=== PATIENT | female | born 1985 | race Caucasian/White ===

== ENCOUNTER 2018-08-14 13:14 | Outpatient (REF) | payer BC, SELFPAY | END 2018-08-14 13:34 | LOC: NCHCN 13:14 | PROVIDERS: PCP Family Medicine; Visit Provider Internal Medicine | DX: N39.0 Urinary tract infection, site not specified (principal) | CPT/HCPCS: 87086 ==

== ENCOUNTER 2018-10-22 09:36 | Outpatient (REF) | payer BC, SELFPAY ==
[2018-10-22 12:43] LABS: ALT 30 U/L (12-78); AST 14 U/L (15-37); Albumin 4.5 g/dL (3.4-5.0); Alkaline Phosphatase 80 U/L (46-116); Anion Gap 10.1 mmol/L (3-11); BUN 12 mg/dL (7-18); Bilirubin, Total 1.1 mg/dL (0.2-1.0); CO2 28.9 mmol/L (21.0-32.0); CREATININE 0.94 mg/dL (0.55-1.02); Calcium 9.5 mg/dL (8.5-10.1); Chloride 105 mmol/L (98-107); Cholesterol 189 mg/dL (50-200); Glucose 103 mg/dL (70-100); HDL Cholesterol 49 mg/dL (40-60); LDL CHOLESTEROL 124 mg/dL (<100); Potassium 4.1 mmol/L (3.5-5.1); Sodium 144 mmol/L (136-145); Total Protein 7.7 g/dL (6.4-8.2); Triglyceride 100 mg/dL (30-150)
== END 2018-10-22 09:56 ==
LOC: NCHCN 09:36
PROVIDERS: PCP Family Medicine; Visit Provider Family Medicine
DX: Z00.00 Encounter for general adult medical examination without abnormal findings (principal); Z83.49 Family history of other endocrine, nutritional and metabolic diseases; Z82.49 Family history of ischemic heart disease and other diseases of the circulatory system
CPT/HCPCS: 80053; 80061; 83721

== ENCOUNTER 2018-11-23 10:49 | Emergency (ER) | payer BC, SELFPAY ==
[2018-11-23] VITALS (44 sets, daily range): BP systolic 110–134; BP diastolic 48–72; PULSE 79–116; RESP 7–24; TEMP 36.7; O2SAT 96–100
--- NOTE | 2018-11-23 11:04 | W.ED.GENAD ---
Discharge Plan Disposition Patient Disposition: HOME Condition: Stable Discharge Details Chief Complaint: Chest Pain Clinical Impression: Chest pain Primary Care Provider: Loretta Oh ED Provider: Elena Lo Home Meds and New Rx's Prescriptions: Continued vitamin B complex [B Complex-Vitamin B12] tablet 1 tab PO DAILY RF: 0 mometasone [Nasonex] 17 GM spray,non-aerosol 17 gm NS BID RF: 0 escitalopram oxalate [Lexapro] 10 mg tablet 10 mg PO DAILY RF: 0 Discharge Instructions Instructions: Chest Pain (ED) Additional Instructions: Please return immediately to the emergency department if you develop any new or worsening symptoms or if you become otherwise concerned. It is extremely important that you make an appointment to be seen in follow-up for this visit as soon as possible by you primary care doctor. Referrals: Loretta Oh [Primary Care Provider] - Discharge Data Discharge Date/Time-TO BE ENTERED AT DEPARTURE: 11/23/18 16:15 Medical Decision Making Terri Mays is a 32 y/o woman with history of anxiety who presented to the emergency department with several days of sharp bilateral intermittent nonradiating chest pain, sensation of chest fullness and heart racing. On exam patient is very well and nontoxic appearing. She does appear mildly anxious. She is tachycardic, cardiopulmonary exam is otherwise benign. Patient has sensation of heart racing while on telemetry, with rhythm strip showing sinus tachycardia at 120, reports this is the same sensation of heart racing that she has been having over the past few days. Concern for ACS, PE, metabolic/lyte derangement, dehydration, anxiety, other. Exam/history is not consistent with sepsis, acute aortic pathology. Plan for EKG, chest x-ray, screening labs, flu swab, IV fluid hydration, telemetry. Given intermittent nature of pain, plan for repeat troponin and EKG. Patient describes no sensation of pain or chest fullness at this time, will hold nitroglycerin. Will monitor and reassess. She reports feeling much improved after IV fluids. Tachycardia resolved. Continues to report no pain. She reports that she feels mildly anxious but otherwise very well. Repeat troponin and EKG negative for acute ischemia. She does have slight ST depression on both EKGs, this is likely rate related as patient is currently having no chest discomfort. There are no priors for comparison. Given the very atypical nature of chest pain, no cardiac risk factors, it is unlikely that patient's chest pain is cardiac at this time. I did have a lengthy discussion with patient regarding return to emergency department precautions, and importance of outpatient follow-up as soon as possible. She verbalizes understanding of the plan and is amenable. Medical Records Medical records reviewed: Yes I reviewed the patient's medical records. Imaging Data Radiologic Study: Attestation: I personally reviewed and interpreted this imaging study as follows: Radiologist's impression: PA AND LATERAL CHEST: The cardiac and mediastinal contours have a normal appearance. The lungs are well inflated and clear. No infiltrate or effusion is seen. IMPRESSION: Negative chest xray. Lab Data Lab results reviewed: Yes I reviewed the patient's lab results. 11/23/18 11:45 Nasopharynx Influenza Types A,B Antigen - Final Laboratory Tests Range/Units 11/23/18 11/23/18 11/23/18 11:50 12:05 12:05 WBC (4.4-10.8) k/cumm 10.06 RBC (4.00-5.20) m/cumm 4.62 Hgb (12.0-15.5) g/dL 13.4 Hct (36.0-46.0) % 39.8 MCV (80-95) fL 86.1 MCH (27.0-33.0) pg 29.0 MCHC (32.0-36.0) g/dL 33.7 RDW (11.7-14.6) % 13.5 Plt Count (130-400) x1000/uL 249 MPV (8.0-11.0) fL 9.6 Immature Gran % 0.2 Neutrophils % 81.6 Lymphocytes % 13.0 Monocytes % 4.8 Eosinophils % 0.2 Basophils % 0.2 Absolute Neutrophils (1.2-6.7) k/cumm 8.21 H Absolute Lymphocytes (1.2-3.4) k/cumm 1.31 Absolute Monocytes (0.11-0.7) k/cumm 0.48 Absolute Eosinophils (0.0-0.7) k/cumm 0.02 Absolute Basophils (0.0-0.2) k/cumm 0.02 D-Dimer (<500) ng/mlFEU Sodium (136-145) mmol/L 138 Potassium (3.5-5.1) mmol/L 3.5 Chloride (98-107) mmol/L 102 Carbon Dioxide (21.0-32.0) mmol/L 24.9 Anion Gap (3-11) mmol/L 11.1 H BUN (7-18) mg/dL 15 Creatinine (0.55-1.02) mg/dL 0.84 Estimated GFR/1.73 m2 (mL/min/1.73m2) >= 60.00 Glucose (70-100) mg/dL 99 Calcium (8.5-10.1) mg/dL 9.2 Total Bilirubin (0.2-1.0) mg/dL 0.9 AST (15-37) U/L 16 ALT (12-78) U/L 24 Alkaline Phosphatase (46-116) U/L 77 Troponin I (0.00-0.06) ng/mL < 0.02 Total Protein (6.4-8.2) g/dL 7.8 Albumin (3.4-5.0) g/dL 4.2 Urine Color (Yellow) Yellow Urine Clarity Clear Urine pH (5-8) 7.0 Ur Specific [place] (1.005-1.025) 1.025 Urine Protein (Negative) mg/dL Negative Urine Ketones (Negative) mg/dL Trace H Urine Blood (Negative) Negative Urine Nitrite (Negative) Negative Urine Bilirubin (Negative) Negative Urine Urobilinogen (Up TO 0.2) EU/dL 0.2 Ur Leukocyte Esterase (Negative) Negative Urine Glucose (Negative) mg/dL Negative Range/Units 11/23/18 11/23/18 12:05 14:42 WBC (4.4-10.8) k/cumm RBC (4.00-5.20) m/cumm Hgb (12.0-15.5) g/dL Hct (36.0-46.0) % MCV (80-95) fL MCH (27.0-33.0) pg MCHC (32.0-36.0) g/dL RDW (11.7-14.6) % Plt Count (130-400) x1000/uL MPV (8.0-11.0) fL Immature Gran % Neutrophils % Lymphocytes % Monocytes % Eosinophils % Basophils % Absolute Neutrophils (1.2-6.7) k/cumm Absolute Lymphocytes (1.2-3.4) k/cumm Absolute Monocytes (0.11-0.7) k/cumm Absolute Eosinophils (0.0-0.7) k/cumm Absolute Basophils (0.0-0.2) k/cumm D-Dimer (<500) ng/mlFEU 239 Sodium (136-145) mmol/L Potassium (3.5-5.1) mmol/L Chloride (98-107) mmol/L Carbon Dioxide (21.0-32.0) mmol/L Anion Gap (3-11) mmol/L BUN (7-18) mg/dL Creatinine (0.55-1.02) mg/dL Estimated GFR/1.73 m2 (mL/min/1.73m2) Glucose (70-100) mg/dL Calcium (8.5-10.1) mg/dL Total Bilirubin (0.2-1.0) mg/dL AST (15-37) U/L ALT (12-78) U/L Alkaline Phosphatase (46-116) U/L Troponin I (0.00-0.06) ng/mL < 0.02 Total Protein (6.4-8.2) g/dL Albumin (3.4-5.0) g/dL Urine Color (Yellow) Urine Clarity Urine pH (5-8) Ur Specific [place] (1.005-1.025) Urine Protein (Negative) mg/dL Urine Ketones (Negative) mg/dL Urine Blood (Negative) Urine Nitrite (Negative) Urine Bilirubin (Negative) Urine Urobilinogen (Up TO 0.2) EU/dL Ur Leukocyte Esterase (Negative) Urine Glucose (Negative) mg/dL ECG Data Attestation: I personally reviewed and interpreted this ECG (s) as follows: Interpretation: EKG shows sinus tach at 125 with normal axis, diffuse ST depression, no STEMI, nondiagnostic EKG EKG #2 shows sinus rhythm at 97, normal axis, slight inferior lateral ST depression, no STEMI, non-diagnostic EKG HPI General Mode of arrival: ambulatory. Date/Time Provider Initiated Documentation: 11/23/18 11:04. Limitations to Documentation: no limitations. Information obtained by: patient, RN notes reviewed and old records reviewed. HPI Narrative: Terri Mays is a 32-year-old woman with history of anxiety, environmental allergies presenting to the emergency department with 4 days of chest fullness, heart racing. Patient reports that 4 days ago she noticed that she was having some pain both sides of her anterior chest, although she associated this with physical therapy that she is having for her shoulder/thoracic outlet syndrome diagnosed 1 year ago. Patient reports that pain in her anterior chest has been intermittent, but she has also had a fairly constant sensation of chest fullness. Patient reports that she is not having any chest pain currently. She also notes that she has felt her heart racing intermittently over the past 4 days. She has had a cough, no fever or shortness of breath. No nausea/vomiting/diarrhea, no rash, no similar symptoms in the past. Has been eating and drinking as usual. No recent travel. She reports recent stress and long h/o anxiety, and is also concerned that chest pain, heart racing may be secondary to anxiety; particularly as the symptoms have seemed worse in the past few days when she has been feeling anxious. Related Data Home Medications Medication Instructions Recorded Confirmed mometasone [Nasonex] 17 gm NS BID 03/12/16 11/26/18 escitalopram 10 mg tablet 10 mg PO DAILY tab 10/15/18 11/26/18 vitamin B complex tablet 1 tab PO DAILY 10/15/18 11/26/18 Allergies Allergy/AdvReac Type Severity Reaction Status Date / Time doxycycline AdvReac Intermediate Other (See Unverified 11/26/18 08:23 Comment) Review of Systems Review of Systems Constitutional: denies fevers Eyes: denies eye pain ENT: denies facial pain, dental pain, sore throat Cardiovascular: reports chest pain, heart racing, denies edema Respiratory: denies SOB, reports cough GI: denies abdominal pain, vomiting, diarrhea : denies flank pain MSK: denies back pain, neck pain, arthralgias, myalgias Skin: denies rash Neuro: denies headaches, numbness, weakness [facility] Medical History Migraine without aura and without status migrainosus, not intractable (Chronic 01/08/18) Postcoital bleeding (Acute) Anxiety Pyelonephritis Surgical History History of nasal septoplasty (Resolved) Arm surgery (~2004) Family History Sister Drug abuse Grandfather Diabetes Uncle Diabetes Social History household members: spouse, children and other details: H-Elvin, D-Kaden number of children: 1 highest education level completed: Bachelor's degree Smoking and Tabacco status: Never second hand exposure: Yes alcohol intake: never substance use type: does not use Seatbelt use: always Female Reproductive History Menstrual control method: permanent sterilization History History 2 Para Hx # Term Pregnancies 1 Multiple births Hx # Pregnancies Ectopic pregnancies AB induced Hx Number of Living Children AB spontaneous Exam Narrative Exam Narrative: Constitutional: well and [id number], pleasant, conversing normally HENT: head atraumatic, normocephalic normal inspection, mucous membranes moist Eyes: conjunctiva normal, sclera normal, pupils 3mm b/l Neck: no stridor, normal ROM, trachea midline Chest: normal inspection, mild TTP anterior chest that does not reproduce pain Resp: normal work of breathing, LCTAB Cardio: Tachycardic rate, normal rhythm, no murmur appreciated GI: abdomen soft, non-tender, non-distended Back: normal inspection, no rash Skin: warm, dry, normal color, no rash Neuro: alert, not altered, grossly non-focal, normal tone Ext: no edema, no posterior calf TTP Psych: normal mood, normal affect, normal behavior
--- NOTE | 2018-11-23 11:22 | DI.RAD_ITS ---
SYMPTOM/DIAGNOSIS: COUGH PA AND LATERAL CHEST: The cardiac and mediastinal contours have a normal appearance. The lungs are well inflated and clear. No infiltrate or effusion is seen. IMPRESSION: Negative chest xray.
[2018-11-23] MEDS: Normal Saline 1,000 ML 1000 ML IV (12:05)
[2018-11-23 12:07] LABS: Bilirubin Negative (Negative); Blood Negative (Negative); Clarity Clear; Glucose Negative (Negative); Ketones Trace mg/dL (Negative); Leukocyte Esterase Negative (Negative); Nitrite Negative (Negative); Specific Gravity 1.025 (1.005-1.025); Urobilinogen 0.2 EU/dL (Up TO 0.2)
[2018-11-23 12:21] LABS: Abs Immature Grans 0.02 k/cumm (0.0-0.09); Absolute Basophil Count 0.02 k/cumm (0.0-0.2); Absolute Eosinophil Count 0.02 k/cumm (0.0-0.7); Absolute Lymphocyte Count 1.31 k/cumm (1.2-3.4); Absolute Monocyte Count 0.48 k/cumm (0.11-0.7); Absolute Neutrophil Count 8.21 k/cumm (1.2-6.7); Basophils % 0.2; Eosinophils % 0.2; HCT 39.8 % (36.0-46.0); HGB 13.4 g/dL (12.0-15.5); Immature Grans % 0.2; Mean Corp. HGB Concentration 33.7 g/dL (32.0-36.0); Mean Corpuscular Volume 86.1 fL (80-95); Mean Platelet Volume 9.6 fL (8.0-11.0); Monocytes % 4.8; Neutrophils % 81.6; Platelet Count 249 x1000/uL (130-400); RBC 4.62 m/cumm (4.00-5.20); RBC Distribution Width 13.5 % (11.7-14.6); White Blood Cell Count 10.06 k/cumm (4.4-10.8)
[2018-11-23 12:56] LABS: D-Dimer 239 ng/mlFEU (<500)
[2018-11-23 13:00] LABS: ALT 24 U/L (12-78); AST 16 U/L (15-37); Albumin 4.2 g/dL (3.4-5.0); Alkaline Phosphatase 77 U/L (46-116); Anion Gap 11.1 mmol/L (3-11); BUN 15 mg/dL (7-18); Bilirubin, Total 0.9 mg/dL (0.2-1.0); CO2 24.9 mmol/L (21.0-32.0); CREATININE 0.84 mg/dL (0.55-1.02); Calcium 9.2 mg/dL (8.5-10.1); Chloride 102 mmol/L (98-107); Glucose 99 mg/dL (70-100); Potassium 3.5 mmol/L (3.5-5.1); Sodium 138 mmol/L (136-145); Total Protein 7.8 g/dL (6.4-8.2)
[2018-11-23 13:01] LABS: Troponin I < 0.02 ng/mL (0.00-0.06)
[2018-11-23 15:09] LABS: Troponin I < 0.02 ng/mL (0.00-0.06)
== END 2018-11-23 16:15 | disposition home or self-care (01) ==
PROVIDERS: Emergency Provider Student in an Organized Health Care Education/Training Program; PCP Family Medicine
DX: R00.0 Tachycardia, unspecified (principal)
CPT/HCPCS: 36415; 80053; 81025; 87449; 93005; 96360; 99285; 71046; 81003; 84484; 85025; 85379; 93010

== ENCOUNTER 2019-01-18 16:16 | Outpatient (REF) | payer BC, SELFPAY ==
--- NOTE | 2019-01-18 15:30 | PAPFT_PTH ---
PATIENT: Terri Mays LOC: [facility] U#:[id number] AGE/SX: 33/F ROOM: RE01/18/[address]: JEAN PIERRE Peñaloza : 1985 BED: DIS: 01/18/2019 SPEC #: [id number] RECD: 01/18/19 18:12 STATUS: LEONARDO REBrandyn #: [id number] AMY: 01/18/19 15:[address]: Aggie Beltrán DEPT: [facility] Cytology RECD BY: April Cowan ENTERED: 01/18/19 18:12 SP TYPE: PAPFT OTHR DR: Loretta Oh Tissues: 1 - CX/ENDOCX FOR PAP SMEARS Procedures: PAP THIN PREP/UVM Screening HPV DNA PROBE Comments: [id number]
== END 2019-01-18 16:36 ==
LOC: LBN 16:16
PROVIDERS: PCP Family Medicine; Visit Provider Nurse Practitioner Family
DX: Z12.4 Encounter for screening for malignant neoplasm of cervix (principal); Z11.51 Encounter for screening for human papillomavirus (HPV)
CPT/HCPCS: 88142; 87624

== ENCOUNTER 2019-03-24 10:13 | Outpatient (CLI) | payer BC, SELFPAY ==
--- NOTE | 2019-03-24 10:08 | DI.RAD_ITS ---
SYMPTOM/DIAGNOSIS: NECK PAIN, ARM AND HAND NUMBNESS CERVICAL SPINE: AP, lateral and bilateral oblique views. There are no priors for comparison. There is normal alignment. The vertebral bodies, disc spaces and posterior elements are all well maintained. The bones are normally mineralized. The soft tissues are unremarkable. No significant neural foraminal encroachment is present. IMPRESSION: Negative cervical spine.
== END 2019-03-24 10:33 ==
PROVIDERS: PCP Family Medicine; Visit Provider Student in an Organized Health Care Education/Training Program
DX: M54.12 Radiculopathy, cervical region (principal); M54.2 Cervicalgia; R20.0 Anesthesia of skin
CPT/HCPCS: 72050

== ENCOUNTER 2019-03-31 00:34 | Outpatient (CLI) | payer BC, SELFPAY ==
--- NOTE | 2019-03-31 11:28 | DI.MRI_ITS ---
SYMPTOMS/DIAGNOSIS: RIGHT UPPER EXTREMITY NUMBNESS, + SPURLING, M54.12 RADICULOPATHY, CERVICAL REGION MRI OF THE CERVICAL SPINE: Routine noncontrast examination was performed. There is normal signal in the spinal cord. No evidence of tonsillar ectopia is seen. There is normal marrow signal. No focal disc herniation, central spinal canal or neural foraminal stenosis is seen in the cervical spine. IMPRESSION: Negative MRI of the cervical spine.
== END 2019-03-31 00:54 ==
PROVIDERS: PCP Family Medicine; Visit Provider Student in an Organized Health Care Education/Training Program
DX: M54.12 Radiculopathy, cervical region (principal); R20.0 Anesthesia of skin
CPT/HCPCS: 72141

== ENCOUNTER 2019-04-26 01:18 | Outpatient (CLI) | payer BC, SELFPAY ==
--- NOTE | 2019-04-26 16:04 | DI.CT_ITS ---
SYMPTOM/DIAGNOSIS: THORACIC OUTLET SYNDROME G54.[address]: 04/26 CT examination of the chest was performed with a bolus infusion of 100 cc Omnipaque 350. Images obtained through the upper abdomen show unremarkable appearance of visualized portions of liver, spleen, pancreas, adrenals and kidneys. The lungs are clear. No pleural effusion or pleural based mass. No mediastinal or hilar adenopathy. Tracheobronchial tree appears intact. No evidence of pulmonary embolic disease. Thoracic aorta is normal in appearance. Major branch vessels show normal diameter and no evidence of dissection, occlusion or aneurysm formation. The requisition raises the possibility of thoracic outlet syndrome. This examination was obtained with the patient's arms elevated. The right subclavian artery appears intact throughout its course. The left subclavian artery is not ideally visualized in the costoclavicular space and the possibility of compression at this site is raised. The distal portions of the artery appear normal. No aneurysm formation. No gross evidence of venous compression or thrombosis in the region surveyed. No mass, lesion or adenopathy. CONCLUSION: Findings raising the possibility of left subclavian artery compression in the costoclavicular space on the left. Clinical correlation requested.
[2019-04-26] MEDS: Omnipaque 350 MG/ML 100 ML BTL IJ (16:15)
== END 2019-04-26 01:38 ==
PROVIDERS: PCP Family Medicine; Visit Provider Thoracic Surgery (Cardiothoracic Vascular Surgery)
DX: G54.0 Brachial plexus disorders (principal); I77.1 Stricture of artery
CPT/HCPCS: 71260; J3490

== ENCOUNTER 2019-05-10 00:59 | Outpatient (CLI) | payer BC, SELFPAY ==
--- NOTE | 2019-05-10 08:54 | DI.MRI_ITS ---
SYMPTOM/DIAGNOSIS: RIGHT FACE NUMBNESS, ? MS VS TGN. R20.1, ANESTHESIA OF SKIN R20.2 PARESTHESIA OF SKIN MRI BRAIN: Routine noncontrast MRI of the brain was performed including thin cuts through the brain stem. There is normal signal within the brain parenchyma. The diffusion weighted images show no evidence of restricted diffusion. Susceptibility images show no intracranial evidence of intracranial hemorrhage. The ventricles are intact. The basilar cisterns are patent. There is a normal flow void present in the [place]. The pituitary gland appears grossly unremarkable as are the regions of the internal auditory canals and cerebellar pontine angles. No intracranial mass, midline shift or mass effect is identified. The visualized paranasal sinuses are clear. The orbits and retro-orbital soft tissues are unremarkable. IMPRESSION: Negative examination.
== END 2019-05-10 01:19 ==
PROVIDERS: PCP Family Medicine; Visit Provider Psychiatry & Neurology Neurology
DX: R20.0 Anesthesia of skin (principal); R20.2 Paresthesia of skin
CPT/HCPCS: 70551

== ENCOUNTER 2019-07-07 14:57 | Outpatient (REF) | payer BC, SELFPAY | END 2019-07-07 15:17 | LOC: LBN 14:57 | PROVIDERS: PCP Family Medicine; Visit Provider Nurse Practitioner Women's Health | DX: R30.0 Dysuria (principal) | CPT/HCPCS: 87086 ==

== ENCOUNTER 2019-07-08 13:27 | Emergency (ER) | payer BC, SELFPAY ==
--- NOTE | 2019-07-08 13:41 | NUR.NOTE ---
Nursing Note: primary complaint is left sided flank pain 8/10 and 5/10 on right side. pt also states that she has had numbness on the left side of her labia and believes that these 2 things are connected for some reason numbness started 2-3 months ago and flank pain started 2 days ago. pt has been seeing OBGYN for (pt does not know name) for these problems pt called OBGYN today expressing concern for pain and OBGYN stated if you are concerned you are more than welcome to go to the ed
[2019-07-08 13:45] VITALS: BP 141/93; PULSE 88; RESP 16; TEMP 36.5; O2SAT 99
[2019-07-08 14:33] LABS: Bilirubin Negative (Negative); Blood Trace-intact (Negative); Clarity Clear (Clear); Glucose Negative (Negative); Ketones Negative (Negative); Leukocyte Esterase Negative (Negative); Nitrite Negative (Negative); Urobilinogen 0.2 EU/dL (Up TO 0.2)
[2019-07-08 14:42] LABS: Abs Immature Grans 0.02 k/cumm (0.0-0.09); Absolute Basophil Count 0.01 k/cumm (0.0-0.2); Absolute Eosinophil Count 0.02 k/cumm (0.0-0.7); Absolute Lymphocyte Count 1.13 k/cumm (1.2-3.4); Absolute Monocyte Count 0.59 k/cumm (0.11-0.7); Absolute Neutrophil Count 8.86 k/cumm (1.2-6.7); Basophils % 0.1; Eosinophils % 0.2; HCT 39.5 % (36.0-46.0); HGB 13.2 g/dL (12.0-15.5); Immature Grans % 0.2; Lymphocytes % 10.6; Mean Corp. HGB Concentration 33.4 g/dL (32.0-36.0); Mean Corpuscular Hemoglobin 28.8 pg (27.0-33.0); Mean Corpuscular Volume 86.1 fL (80-95); Mean Platelet Volume 9.5 fL (8.0-11.0); Monocytes % 5.6; Neutrophils % 83.3; Platelet Count 260 x1000/uL (130-400); RBC 4.59 m/cumm (4.00-5.20); RBC Distribution Width 13.2 % (11.7-14.6); White Blood Cell Count 10.63 k/cumm (4.4-10.8)
[2019-07-08 14:42] LABS: Bacteria Negative HPF (Negative); C & S Indicated? C&S Done As Ordered; Casts Negative LPF (Negative); Crystals Negative HPF (Negative); Epithelial Cells Few HPF (Negative); Mucus Negative (Negative); Other Cells Rare Renal (Negative); RBC 0-2 (0-2); WBC Negative HPF (0-5)
[2019-07-08 14:51] LABS: ALT 21 U/L (14-59); AST 13 U/L (15-37); Albumin 4.5 g/dL (3.4-5.0); Alkaline Phosphatase 69 U/L (46-116); Anion Gap 12.1 mmol/L (3-11); BUN 14 mg/dL (7-18); Bilirubin, Total 1.2 mg/dL (0.2-1.0); CO2 24.9 mmol/L (21.0-32.0); CREATININE 0.88 mg/dL (0.55-1.02); Calcium 9.1 mg/dL (8.5-10.1); Chloride 106 mmol/L (98-107); Glucose 100 mg/dL (70-100); Potassium 3.9 mmol/L (3.5-5.1); Sodium 143 mmol/L (136-145); Total Protein 7.7 g/dL (6.4-8.2)
--- NOTE | 2019-07-08 15:19 | DI.US_ITS ---
EXAM: US RENAL PELVIC TRANSVAGINAL CLINICAL HISTORY: flank pain, pelvic paresthesia. TECHNIQUE: Ultrasound performed using standard protocol. Pelvic ultrasound was performed transabdominally and transvaginally. COMPARISON: PELVIS AND TRANSVAG from 09/24/2017 FINDINGS: Please see the accompanying data sheet for measurements of pelvic structures. Limited scanning of th e kidneys is unremarkable. There is an IUD in place in the endometrial cavity in the fundus. Ovarie s show normal follicular appearance. No free fluid identified in the cul-de-sac. Limited scanning o f the kidneys is unremarkable. IMPRESSION: IUD in place, negative pelvic ultrasound
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
== END 2019-07-08 16:50 | disposition home or self-care (01) ==
PROVIDERS: Emergency Provider Physician Assistant; PCP Family Medicine
DX: R20.0 Anesthesia of skin (principal); M54.5 Low back pain; F41.9 Anxiety disorder, unspecified; G57.01 Lesion of sciatic nerve, right lower limb
CPT/HCPCS: 36415; 76770; 80053; 81025; 99284; 76830; 76856; 81003; 81015; 85025; 87086; 99285

== ENCOUNTER 2021-04-02 15:26 | Emergency (ER) | payer BC, SELFPAY ==
[2021-04-02 15:45] VITALS: BP 133/79; PULSE 95; RESP 18; TEMP 36.8; O2SAT 100
--- NOTE | 2021-04-02 15:45 | DI.RAD_ITS ---
Exam(s) XR FOREARM LT EXAM: XR FOREARM LT there is a lateral fixation plate across the midshaft of the ulna secured by mul tiple screws. No fracture or loosening. No radiographic evidence of osteomyelitis. No fracture sweta es evident at this time. Radius appears unremarkable. CLINICAL HISTORY: Hx Metal plates and screws, Arm Injury. TECHNIQUE: 2D digital imaging was performed. COMPARISON: No exams were available for comparison FINDINGS: IMPRESSION: DATA REPOSITORY: RADIATION DOSE DELIVERED:
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
--- NOTE | 2021-04-02 17:01 | DI.VRAD_ITS ---
PROCEDURE INFORMATION: Exam: XR Left Forearm Exam date and time: 04/02/2021 3:57 PM Age: 35 years old Clinical indication: Pain; Lower or forearm; Left; Prior surgery TECHNIQUE: Imaging protocol: XR Left forearm. Views: 2 views. COMPARISON: No relevant prior studies available. FINDINGS: Bones/joints: No acute fracture identified. There is screw and plate fixation of the mid shaft of the left ulna. Several of the screw tips extend beyond the bony cortex, likely a chronic finding. Comparison with prior radiographs, if available, would be beneficial. There is a somewhat dense appearance to the mid shaft of the radius/radial diaphysis. Soft tissues: Posterior soft tissue swelling is noted the level of the mid forearm, best appreciated on the lateral radiograph. This is near the ulnar plate. There is a punctate radiodensity in the soft tissues adjacent to the 4th proximal screw tip, series 2. An additional punctate radiodensity is noted in the dorsal soft tissues at the level of the wrist, image 1. IMPRESSION: 1. No acute fracture identified. Evidence of prior surgery as described. 2. Posterior soft tissue swelling is noted the level of the mid forearm, near the ulnar plate. Findings can be seen with infection, inflammation, or trauma. Clinical correlation suggested with any concern for infection in this region is suggested. 3. There is a somewhat dense appearance to the mid shaft of the radius/radial diaphysis. This may be secondary to prior trauma or be artifactual. Correlation with any history of bone pain in the mid shaft of the radius is suggested. 4. Two tiny punctate radiodensities as described. These may be artifactual or related to soft tissue calcifications. Correlation with any concern for foreign body suggested. Other findings/details as above. If symptoms remain concerning, consider alternative imaging modalities. Dictated and Authenticated by: Candice Alvarado MD. Ordering:ANTON Mann MD
== END 2021-04-02 17:11 | disposition home or self-care (01) ==
PROVIDERS: Emergency Provider Registered Nurse Emergency; PCP Family Medicine
DX: S63.592A Other specified sprain of left wrist, initial encounter (principal); W51.XXXA Accidental striking against or bumped into by another person, initial encounter
CPT/HCPCS: 99283; 73090; 99282

== ENCOUNTER 2022-05-13 20:46 | Outpatient (REF) | payer BC, SELFPAY ==
[2022-05-14 20:13] LABS: COVID-19 RT-PCR UVMMC Result Negative (Negative)
== END 2022-05-13 20:47 | disposition home or self-care (01) ==
LOC: NCHCN 20:46
PROVIDERS: PCP Family Medicine; Visit Provider Family Medicine
DX: Z20.822 Contact with and (suspected) exposure to COVID-19 (principal); Z01.818 Encounter for other preprocedural examination
CPT/HCPCS: U0003

== ENCOUNTER 2023-01-06 17:43 | Emergency (ER) | payer BC, SELFPAY ==
[2023-01-06 17:46] VITALS: BP 138/87; PULSE 97; RESP 17; O2SAT 100
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
--- NOTE | 2023-01-06 18:05 | DI.RAD_ITS ---
Exam(s) XR HAND RT COMPLETE EXAM: XR HAND RT COMPLETE CLINICAL HISTORY: cat bite. TECHNIQUE: 2D digital imaging was performed of the right hand. Three images were obtained. AP, late ral and oblique views were obtained. COMPARISON: No exams were available for comparison FINDINGS: BONES: No acute fracture is present. No bony destructive lesion is seen. JOINTS: No dislocation present. SOFT TISSUE: Normal. No radiopaque foreign bodies. IMPRESSION: Unremarkable radiographs of the right hand. DATA REPOSITORY: RADIATION DOSE DELIVERED:
[2023-01-06] MEDS: Amox. 875/Clav. 125, 2 TABS/BTL 1 TAB PO (18:27)
--- NOTE | 2023-01-06 19:05 | DI.VRAD_ITS ---
PROCEDURE INFORMATION: Exam: XR Right Hand Exam date and time: 01/06/2023 6:40 PM Age: 37 years old Clinical indication: Other: Cat bite, cat scratch TECHNIQUE: Imaging protocol: Radiologic exam of the right hand. Views: 3 or more views. COMPARISON: No relevant prior studies available. FINDINGS: Bones/joints: Three views of the right hand reveal no acute fracture or dislocation. Soft tissues: No gross focal soft tissue swelling is seen. No radiopaque foreign body is demonstrated. IMPRESSION: No acute fracture, dislocation, or radiopaque foreign body seen in the right hand. Dictated and Authenticated by: Yong Can MD. Ordering:KOKO Griffin MD
[2023-01-06 19:08] VITALS: BP 125/85; PULSE 83; RESP 16; TEMP 36.8; O2SAT 99
== END 2023-01-06 19:10 | disposition home or self-care (01) ==
PROVIDERS: Emergency Provider Physician Assistant; PCP Family Medicine
DX: S61.431A Puncture wound without foreign body of right hand, initial encounter (principal); W55.03XA Scratched by cat, initial encounter; Z23 Encounter for immunization
CPT/HCPCS: 90471; 99283; 73130; 99284

== ENCOUNTER 2024-07-26 16:41 | Outpatient (REF) | payer BC, SELFPAY ==
--- NOTE | 2024-07-26 16:00 | PAPFT_PTH ---
PATIENT: Terri Mays LOC: [facility] U#:[id number] AGE/SX: 38/F ROOM: RE07/26/[address]: Loretta Oh : 1985 BED: DIS: 07/26/2024 SPEC #: [id number] RECD: 07/28/24 17:42 STATUS: LEONARDO REBrandyn #: [id number] AMY: 07/26/24 16:[address]: Loretta Oh DEPT: [facility] Cytology RECD BY: April Cowan Tissues: 1 - CX/ENDOCX FOR PAP SMEARS Procedures: PAP THIN PREP/UVM Screening HPV DNA PROBE Comments: [id number] (HPV 16 & 18/45)
--- OUTSIDE RECORDS SUMMARY | 2024-07-26 16:44 | XMS_ITS | Encounter Summary ---
Author Organization [facility] [place] [address] Care Team Providers Care Software Integration Developer Name Role Phone Loretta Oh MD Primary Care Provider [phone] Encounter Details Date Type Department Care Team (Late st Contact Info) Description 04/26/2019 Ancillary Procedure Radiology Library at [facility] [place] [id number] Ruel Frazier MD [address] [place] [address] Social History Tobacco Use Types Packs/Day Years Used Date Smoking Tobacco: Never Smokeless Tobacco: Never Sex and Gender Information Value Date Recorded Sex Assigned at Not on file Gender Identity Not on file Sexual Orientation Not on file documented as of this encounter Plan of Treatment Not on file documented as of this encounter Procedures Procedure Name Priority Date/Time Associated Diagnosis Comments FILM LIBRARY STORAGE ONLY CT CHEST Routine 04/26/2019 12:00 AM EDT documented in this encounter Results * Film Library- Storage Only CT Chest (04/26/2019 12:00 AM EDT) Narrative DENISE - 04/27/2019 4:07 PM EDT This exam is auto-finalizing. It's purpose is for storage only. Ruel Frazier MD IMG FILM LIBRARY ORD ERABLES [facility] Dionisio DC documented in this encounter Visit Diagnoses Not on filedocumented in this encounter Care Teams Software Integration Developer Relationship Specialty Start Date End Date Loretta Oh MD [address] [place] [address] PCP - General Family Medicine 04/05/19 documented as of this encounter
--- OUTSIDE RECORDS SUMMARY | 2024-07-26 16:44 | XMS_ITS | Clinical Summary ---
Author Organization [facility] [place] [address] Care Team Providers Care Loan Services Professional Name Role Phone Loretta Oh MD Primary Care Provider [phone] Allergies Active Allergy Reactions Criticality Noted Date Comments Famotidine CIS - Rash Medications Medication Sig Dispensed Refills Start Date End Date Status fluticasone propionate (FLONASE) 50 mcg/actuation [place], Suspension SPRAY 1 SPRAY INTO EACH NOSTRIL TWO TIMES A DAY 3 01/01/2019 Active FLUoxetine (PROZAC) 10 mg Capsule TAKE ONE CAPSULE BY MOUTH EVERY DAY 1 06/10/2019 Active b complex vitamins Tablet Take 1 tablet by mouth daily. Active fish oil-omega-3 fatty acids 500 mg Capsule Take by mouth. Active ascorbic acid, vitamin C, (VITAMIN C) 500 mg Tablet, Chewable Take by mouth. Acti ve Active Problems No known active problems Social History Tobacco Use Types Packs/Day Years Used Date Smoking Tobacco: Never Smokeless Tobacco: Never Sex and Gender Information Value Date Recorded Sex Assigned at Not on file Gender Identity Not on file Sexual Orientation Not on file Last Filed Vital Signs Vital Sign Reading Time Taken Comments Blood Pressure 113/66 08/06/2019 9:48 AM EDT Pulse 100 08/06/2019 9:48 AM EDT Temperature 36.6 ??C (97.9 ??F) 08/06/2019 9:48 AM ED T Respiratory Rate 16 08/06/2019 9:48 AM EDT Oxygen Saturation 100% 08/06/2019 9:48 AM EDT Inhaled Oxygen Concentration - - Weight 58.5 kg (129 lb) 08/06/2019 9:45 AM EDT Height 171 cm (5' 7.32) 08/06/2019 9:45 AM EDT Body Mass Index 20.01 08/06/2019 9:45 AM EDT Plan of Treatment Health Maintenance Due Date Last Done Comments HIV screen 12/20/2005 Hepatitis C Screening 12/20/2005 Hepatitis B vaccine (0-59 yrs) (1) 12/20/2006 Tetanus/Diphtheria/Pertussis Vaccines (1 - Tdap) 12/20 HPV test 12/20/2017 PAP Smear 12/20/2017 Covid-19 Vaccine (1 - season) 2024 Influenza (Flu) vaccine (1 o f 1 - Influenza standard series) 06/20/2024 Care Teams Loan Services Professional Relationship Specialty Start Date End Date Loretta Oh MD [address] [place], [place] [id number] PCP - General Family Medicine 04/05/19
--- OUTSIDE RECORDS SUMMARY | 2024-07-26 16:44 | XMS_ITS | Encounter Summary ---
[place] [address] Care Team Providers Care Screener Operator Name Role Phone Loretta Oh MD Primary Care Provider [phone] Encounter Details Date Type Department Care Team (Late st Contact Info) Description 05/05/2019 Telephone [place] [phone] Ruel Frazier MD [address] [place] [address] Social History Tobacco Use Types Packs/Day Years Used Date Smoking Tobacco: Never Smokeless Tobacco: Never Sex and Gender Information Value Date Recorded Sex Assigned at Not on file Gender Identity Not on file Sexual Orientation Not on file documented as of this encounter Plan of Treatment Not on file documented as of this encounter Visit Diagnoses Not on filedocumented in this encounter Care Teams Screener Operator Relationship Specialty Start Date End Date Loretta Oh MD [address] [place] [address] PCP - General Family Medicine 04/05/19 documented as of this encounter
--- OUTSIDE RECORDS SUMMARY | 2024-07-26 16:44 | XMS_ITS | Encounter Summary ---
[place] [address] Care Team Providers Care Fryer Line Helper Name Role Phone Loretta Oh MD Primary Care Provider [phone] Encounter Details Date Type Department Care Team (Late st Contact Info) Description 04/21/2019 Tele[place] [phone] Jennifer Bean Social History Tobacco Use Types Packs/Day Years Used Date Smoking Tobacco: Never Smokeless Tobacco: Never Sex and Gender Information Value Date Recorded Sex Assigned at Not on file Gender Identity Not on file Sexual Orientation Not on file documented as of this encounter Miscellaneous Notes * Telephone Encounter - Jennifer Bean - 04/21/2019 3:22 PM EDT Prior Authorization for CT Chest w/ contrast PA Valid through: 04/21/19-06/19/19 PA# [id number] documented in this encounter Plan of Treatment Not on file documented as of this encounter Visit Diagnoses Not on filedocumented in this encounter Care Teams Fryer Line Helper Relationship Specialty Start Date End Date Loretta Oh MD [address] [place] [address] PCP - General Family Medicine 04/05/19 documented as of this encounter
--- OUTSIDE RECORDS SUMMARY | 2024-07-26 16:44 | XMS_ITS | Encounter Summary ---
[place] [address] Care Team Providers Care Crime Prevention Police Officer Name Role Phone Loretta Oh MD Primary Care Provider [phone] Encounter Details Date Type Department Care Team (Late st Contact Info) Description 07/12/2019 Telephone [place] [phone] Jennifer Bean Social History Tobacco Use Types Packs/Day Years Used Date Smoking Tobacco: Never Smokeless Tobacco: Never Sex and Gender Information Value Date Recorded Sex Assigned at Not on file Gender Identity Not on file Sexual Orientation Not on file documented as of this encounter Miscellaneous Notes * Telephone Encounter - Jennifer Bean - 07/12/2019 11:12 AM EDT Called and left message. Due for 3 mo f/u with Dr. Frazier at the end of June. documented in this encounter Plan of Treatment Not on file documented as of this encounter Visit Diagnoses Not on filedocumented in this encounter Care Teams Crime Prevention Police Officer Relationship Specialty Start Date End Date Loretta Oh MD [address] [place] [address] PCP - General Family Medicine 04/05/19 documented as of this encounter
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
--- OUTSIDE RECORDS SUMMARY | 2024-07-26 16:45 | XMS_ITS | Encounter Summary ---
Author Organization [facility] Address [address] [place] [address] Care Team Providers Care Final Armature Tester Name Role Phone Unknown, Provider Primary Care Provider [phone] Suzan Ji CONSTRUCTION TEACHER Unavailable [phone] Encounter Details Date Type Department Care Team (Late st Contact Info) Description 04/09/2018 Results Only [facility] [phone] Carlo Nelson MD [address] [place] [phone] Social History Tobacco Use Types Packs/Day Years Used Date Smoking Tobacco: Never Assessed Sex and Gender Information Value Date Recorded Sex Assigned at Not on file Gender Identity Not on file Sexual Orientation Not on file documented as of this encounter Plan of Treatment Not on file documented as of this encounter Procedures Procedure Name Priority Date/Time Associated Diagnosis Comments SURGICAL PATHOLOGY Routine 04/09/2018 10 :27 EDT documented in this encounter Results * SURGICAL PATHOLOGY (04/09/2018 10:27 EDT) Pathology Report: SURGICAL PATHOLOGY REPORT Reports generated via electronic interface contain original data; however they are lacking the format of the original report. Caution should be taken when reading/interpreting unformatted reports. Name: ? MARTA LAST ? Accession #: ? [id number] ? : ? 1985 (Age: 32) ??F ? Collect Date: ? 04/09/2018 ? Location: ? [facility] ? Receive Date: ? 04/09/2018 ? Provider: CARLO NELSON MD Copy to: SHERLYN HUERTA MD ? Final Pathologic Diagnosis: CARTILAGE/BONE OF NASAL SEPTUM, SEPTOPLASTY: - Fragments of bone and cartilage with no specific gross pathologic features. Gross only. Document reviewed and electronically signed by: NORA KERR MD Report ??Date: 04/13/2018 14:54 By the signature above, the attending physician certifies that he/she has personally conducted a gross and/or microscopic examination of the described specimens and rendered or confirmed the above diagnosis. Specimen(s) Received: Septal cartilage and bone Clinical History: Deviated nasal septum Gross Description: ? Received in formalin labelled with proper patient identification (initials T, T) and septal cartilage bone are multiple irregular fragments of malhotra-white to yellow osteocartilaginous tissue (2.5 x 1.8 x 1.0 cm in aggregate). No definitive soft tissue is present. No masses or lesions are identified. The specimen is submitted for gross examination only. No sections submitted. BLANCA Horowitz (ASCP) 04/10/2018 2:03 PM End of Report [facility] 04/09/2018 10:2 7 EDT 04/09/2018 10:27 EDT Carlo Nelson MD PATHOLOGY ORDERABLES [facility] [address] [place] [address] documented in this encounter Visit Diagnoses Not on filedocumented in this encounter Care Teams Final Armature Tester Relationship Specialty Start Date End Date Unknown, Provider, PCP - General 12/23/16 Suzan Ji NP [address] [place] [address] 12/23/16 documented as of this encounter
--- OUTSIDE RECORDS SUMMARY | 2024-07-26 16:45 | XMS_ITS | Encounter Summary ---
Author Organization [facility] Address [address] [place] [address] Care Team Providers Care Ice Cream Chef Name Role Phone Suzan Ji NP Primary Care Provider [phone] Unknown, Provider Primary Care Provider [phone] Suzan Ji OIL AND GAS FIELD TECHNICIAN Unavailable [phone] Encounter Details Date Type Department Care Team (Late st Contact Info) Description 12/19/2016 Results Only [facility] [phone] Sherlyn hO MD [address] [place] [phone] Social History Tobacco Use Types Packs/Day Years Used Date Smoking Tobacco: Never Assessed Sex and Gender Information Value Date Recorded Sex Assigned at Not on file Gender Identity Not on file Sexual Orientation Not on file documented as of this encounter Plan of Treatment Not on file documented as of this encounter Procedures Procedure Name Priority Date/Time Associated Diagnosis Comments PAP TEST- RESULT ONLY Routine 12/19/2016 0:00 EST documented in this encounter Results * PAP TEST- RESULT ONLY (12/19/2016 0:00 EST) Pathology Report: CYTOPATHOLOGY REPORT Reports generated via electronic interface contain original data; however they are lacking the format of the original report. Caution should be taken when reading/interpreti ng unformatted reports. Name: ? MARTA LAST ? Accession #: ? [id number] : ? 1985 (Age: 31) ??F ?Collect Date: ? 12/19/2016 Location: ? [facility] ? Receive Date: ? 12/23/2016 Provider: ?SHERLYN OH MD Copy to: ? Specimen/Source: ?Pap Test, Vagina/Cervix, ThinPrep Imaging System with manual evaluation Last Menstrual Period: ? 12/13/16 Hormonal/Contracep tive Status: ? None ? SPECIMEN ADEQUACY ? Satisfactory for Evaluation - transformation zone component absent GENERAL CATEGORIZATION ? Negative for Intraepithelial Lesion or Malignancy ? Document reviewed and electronically signed by: ? SUYAPA Bustos(ASCP) ? Report Date: ??12/26/2016 08:41 End of Report [facility] 12/19/2016 12/23/2016 Sherlyn Oh MD PATHOLOGY ORDERABLES [facility] [address] [place] [address] documented in this encounter Visit Diagnoses Not on filedocumented in this encounter Care Teams Ice Cream Chef Relationship Specialty Start Date End Date Suzan Ji OIL AND GAS FIELD TECHNICIAN [address] [place] [address] PCP - General 08/11/09 12/22/16 Unknown, Provider, [address] [place] [address] PCP - General 12/23/16 Suzan Ji NP [address] [place] [address] 12/23/16 documented as of this encounter
--- OUTSIDE RECORDS SUMMARY | 2024-07-26 16:45 | XMS_ITS | Continuity of Care Document ---
Author Name [facility] Address [address] [place] [id number] Organization [facility] Address [address] [place] [address] Support Name Relationship Address Phone PCP, of Choice Primary Care Provider Unknown Unav ailable Donna Velazquez Attending Provider [facility] [address] [place] [address] Katherine Segura Referring Provider [facility] Sleep T herapy [address] [facility] [address] [place] [address] Allergies, Adverse Reactions, Alerts Allergen Type Severity Reaction Last Updated Verified Status doxycycline Allergy malaise December 27, 2021 Y Activ e Medications Active Medications Medication Dose Units Route Sig Qty Start Date Status In structions Desloratadine 5 MG ORAL DAILY 30 December 27, 2021 Active recommend OTC loratadine if not covered Mometasone 1 SPR NASAL TWICE A DAY 17 December 27, 2021 Active administer into each nostril Problem List Active Problems Medical Problem Onset Date Status Nasal turbinate hypertrophy Acti ve Aileen bullosa Active Chronic nasal congestion Active Deviated nasal septum Active Procedures No known history of procedures. Relevant Diagnostic Tests and/or Laboratory Data No known relevant diagnostic tests, laboratory data, and/or discharge summary. Advance Directives Advance Directive Response Recorded Date/ Time Do we have a copy on file here at [facility]? No December 27, 2021 3:09pm Does patient have an Advanced Directive? No December 27, 2021 3:09pm Pt has a Living Will? No December 27, 2021 3:09pm Pt has a Power of Arch Pad Cementer? No Bunny 2021 3:09pm Chief Complaint and Reason for Visit Encounter Admit Date Chief Complaint Reason for V isit Departed Physician/Provider Office Visit December 27, 2021 3:09pm New Patient Chronic nasal congestion Aileen bullosa Deviated nasal septum Nasal turbinate hypertrophy Hospital Discharge Instructions No known hospital discharge instructions. Hospital Discharge Medications Medication Dose Units Route Sig Qty Days Order Date Status Ins tructions Desloratadine 5 MG ORAL DAILY 30 Ma [facility] 2021 Active recommend OTC loratadine if not covered Mometasone 1 SPR NASAL TWICE A DAY 17 M [facility] 2021 Active administer into each nostril Encounters Encounter Facility Location Admit/Visit Date Discharge/Departure Date Attending Provider Departed Physician/Pr ovider Office Visit [facility] December 27, 2021 3:09pm December 27, 2021 4:16pm Donna Velazquez Encounter Diagnosis Onset Date Chronic nasal congestion Aileen bullosa Deviated nasal septum Nasal turbinate hypertrophy Functional Status No known functional status. Immunizations No known immunizations. Plan of Care No Known Plan of Care Information Social History Query Response Date Recorded Comment Smoking Status Never smoker December 27, 2021 3:30pm Query Response Start Date Stop Date Smoking Status Never smoker Vital Signs Vital Reading Result Reference Range Collection Date/Time Weight n/a Pulse 94 BPM 60-100 December 27, 2021 3:38pm Respiration 16 RPM 12-24 December 27, 2021 3:38pm Blood Pressure Systolic 118 100-140 [facility] 2021 3:38pm Blood Pressure Diastolic 72 50-85 [facility] 2021 3:38pm
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
--- OUTSIDE RECORDS SUMMARY | 2024-07-26 16:45 | XMS_ITS | Encounter Summary ---
Author Organization [facility] Address [address] [place] [address] Care Team Providers Care Obstetrician Name Role Phone Suzan Ji HRIS ADMINISTRATOR Primary Care Provider [phone] Encounter Details Date Type Department Care Team (Late st Contact Info) Description 03/26/2010 Results Only [facility] Laboratory Services - [facility] ([facility]) [address] [place] [address] Cony Mae PA [address] [place] [address] Social History Tobacco Use Types Packs/Day Years Used Date Smoking Tobacco: Never Assessed Sex and Gender Information Value Date Recorded Sex Assigned at Not on file Gender Identity Not on file Sexual Orientation Not on file documented as of this encounter Plan of Treatment Not on file documented as of this encounter Procedures Procedure Name Priority Date/Time Associated Diagnosis Comments CYTOPATHOLOGY Routine 03/26/2010 0:00 EDT documented in this encounter Results * CYTOPATHOLOGY (03/26/2010 0:00 EDT) Pathology Report: CYTOPATHOLOGY REPORT ? Reports generated via electronic interface contain original data; ? however they are lacking the format of the original report. ? Caution should be taken when reading/interpreti ng unformatted reports. ? Name: ? MARTA LUO ? Accession #: ? [id number] ? : ? 1985 (Age: 24) ??F ?Collect Date: ? 03/26/2010 ? Location: ? [facility] ? Receive Date: ? 03/28/2010 ? Provider: ?CONY MAE PA ? Copy to: ? Specimen/Source: ?Pap Test, Cervix, ThinPrep Imaging System with manual ?? evaluation ? Last Menstrual Period: ? 5/26/10 ? Other: ? HPVA - HPV testing requested if ASC-US on the current ThinPrep Pap test. ? SPECIMEN ADEQUACY ? Satisfactory for Evaluation ? - transformation zone component present ? GENERAL CATEGORIZATION ? Negative for Intraepithelial Lesion or Malignancy ? Document reviewed and electronically signed by: ? Francesca Grampian, CT(ASCP) ? Report Date: ??04/02/2010 07:50 ? End of Report ? [facility] 03/26/2010 03/28/2010 Cony RIOS PATHOLOGY ORDERABLES [facility] [address] [place] [address] documented in this encounter Visit Diagnoses Not on filedocumented in this encounter Care Teams Obstetrician Relationship Specialty Start Date End Date Suzan Ji, ERIKA [address] [place] [phone] PCP - General 08/11/09 12/22/16 documented as of this encounter
--- OUTSIDE RECORDS SUMMARY | 2024-07-26 16:45 | XMS_ITS | Encounter Summary ---
Author Organization [facility] Address [address] [place] [address] Care Team Providers Care Automotive Service Management Teacher Name Role Phone Unknown, Provider Primary Care Provider [phone] Suzan Ji FITNESS COACH Unavailable [phone] Reason for Visit * (Routine/Next Available) - Receiving Office to Obtain Authorization Specialty Diagnoses / Procedures Referred By Renee field Referred To Contact Procedures CT OUTSIDE IMAGES NEURO Unknown, Provider, Referral ID Status Reason Start Date Expiration Date Visits Requested Visits Authorized [id number] Receiving Office to Obtain Authorization 03/13/2022 1 1 Encounter Details Date Type Department Care Team (Latest Contact Info) Description 02/28/2022 - 02/28/2022 23:59 EDT Hospital Encounter [facility] Secondary Reads [place] Discharge Disposition: Home or Self Care Social History Tobacco Use Types Packs/Day Years Used Date Smoking Tobacco: Never Assessed Interpersonal Safety Answer Date Record ed Physically Hurt Never 05/21/2020 Verbally Threaten Not on file 05/21/2020 Sex and Gender Information Value Date Recorded Sex Assigned at Not on file Gender Identity Not on file Sexual Orientation Not on file documented as of this encounter Discharge Disposition Disposition Code Departure Means Destination Home or Self Care documented in this encounter Plan of Treatment Not on file documented as of this encounter Procedures Procedure Name Priority Date/Time Associated Diagnosis Comments CT OUTSIDE IMAGES NEURO Routine 03/13/2022 15:48 EDT documented in this encounter Results * CT OUTSIDE IMAGES NEURO (03/13/2022 15:48 EDT) Narrative 03/13/2022 15:48 EDT This is a non-reportable exam. Provider Unknown MD [facility] OTHER IMAGING OR DERABLES documented in this encounter Visit Diagnoses Not on filedocumented in this encounter Care Teams Automotive Service Management Teacher Relationship Specialty Start Date End Date Unknown, Provider, PCP - General 12/23/16 Suzan Ji, [address] [place] [address] 12/23/16 documented as of this encounter
--- OUTSIDE RECORDS SUMMARY | 2024-07-26 16:45 | XMS_ITS | Encounter Summary ---
Author Organization [facility] Address [address] [place] [address] Care Team Providers Care Commander Internal Affairs Name Role Phone Suzan Ji [employer] Primary Care Provider [phone] Encounter Details Date Type Department Care Team (Late st Contact Info) Description 05/11/2012 Results Only [facility] Services - [facility] [address] [place] [address] Cony Mae PA [address] [place] [address] Social History Tobacco Use Types Packs/Day Years [...] Diagnosis Comments PAP TEST- RESULT ONLY Routine 05/11/2012 0:00 EDT documented in this encounter Results * PAP TEST- RESULT ONLY (05/11/2012 0:00 EDT) Pathology Report: CYTOPATHOLOGY REPORT Reports generated via electronic interface contain original data; however they are lacking the format of the original report. Caution should be taken when reading/interpreti ng unformatted reports. Name: ? MARTA LUO ? Accession #: ? [id number] ? : ? 1985 (Age: 26) ??F ?Collect Date: ? 05/11/2012 ? Location: ? [facility] ? Receive Date: ? 05/12/2012 ? Provider: CONY RIOS Copy to: ? Final Report SPECIMEN ADEQUACY ? Satisfactory for Evaluation - transformation zone component present GENERAL CATEGORIZATION ? Negative for Intraepithelial Lesion or Malignancy INTERPRETATION ? Reactive cellular changes associated with inflammation present (includes repair). Last Menstural Period: 05/05/2012 Hormonal/Contracep tive status: Oral contraceptives Previous Gynecologic Pathology: LSIL: h/o Specimen/Source: ??Pap Test, Endocervix, ThinPrep Imaging System with manual evaluation Document reviewed and electronically signed by: ? KATHARINE JAVIER MD ? Report ??Date: 05/15/2012 13:45 HPV with Pap Test ? Date Ordered: ? 05/15/2012 ? Status: ?? Signed Out ?Date Complete: ? 05/19/2012 ? By: ??System Interface ? Date Reported: ? 05/19/2012 ? Interpretation RESULT: Negative for HPV. No E6 or E7 mRNA is detected from HPV types 16,18,31,33,35, 39,45,51,52,56,58, 59,66, and 68 by auto battery builder mediated amplification. Comments Document reviewed and electronically signed by: ? System Interface ? Report date: 05/19/2012 By the signature above, the attending physician certifies that he/she has personally conducted a gross and/or microscopic examination of the described specimens and rendered or confirmed the above diagnosis. End of Report [facility] 05/11/2012 05/12/2012 Cony RIOS PATHOLOGY ORDERABLES [facility] [address] [place] [address] documented in this encounter Visit Diagnoses Not on filedocumented in this encounter Care Teams Commander Internal Affairs Relationship Specialty Start Date End Date Suzan Ji, ERIKA [address] [place] [address] PCP - General 08/11/09 12/22/16 documented as of this encounter
--- OUTSIDE RECORDS SUMMARY | 2024-07-26 16:45 | XMS_ITS | Encounter Summary ---
Author Organization [facility] Address [address] [place] [address] Care Team Providers Care Headend Technician Name Role Phone Suzan Ji RADIATION PROTECTION SPECIALIST Primary Care Provider [phone] Encounter Details Date Type Department Care Team (Latest Contact Info) Description 05/11/2012 13:53 EDT - 05/11/2012 13:54 EDT Hospital Encounter [facility] - [address] [address] Cony Mae PA [address] [place] [address] Discharge Disposition: Home or Self Care Social [...] on filedocumented in this encounter Care Teams Headend Technician Relationship Specialty Start Date End Date Suzan Ji NP [address] [place] [phone] PCP - General 08/11/09 12/22/16 documented as of this encounter
--- OUTSIDE RECORDS SUMMARY | 2024-07-26 16:45 | XMS_ITS | Continuity of Care Document ---
Author Name [facility] Address [address] [place] [address] [id number] [address] [facility] Address [address] [place] [address] Support Name Relationship Address Phone PCP, of Choice Primary Care Provider Unknown Unav ailable Donna Velazquez Attending Provider [facility] [address] [place] [address] Donna Velazquez Referring Provider [address] [address] Allergies, Adverse Reactions, Alerts Allergen Type Severity Reaction Last Updated Verified Status doxycycline Allergy malaise December 27, 2021 Y Activ e Medications Active Medications Medication Dose Units Route Sig Qty Start Date Status In structions Desloratadine 5 MG ORAL DAILY December 27, 2021 Active recommend OTC loratadine if not covered Mometasone 1 SPR NASAL TWICE A DAY December 27, 2021 Active administer into each [...] have a copy on file here at [facility]? No December 27, 2021 3:09pm Does patient have an Advanced Directive? No December 27, 2021 3:09pm Pt has a Living Will? No December 27, 2021 3:09pm Pt has a Power of Spun Paste Machine Operator? No Bunny 2021 3:09pm Chief Complaint and Reason for Visit Encounter Admit Date Chief Complaint Reason for V isit Departed Physician/Provider Office Visit January 31, 2022 3:52pm Follow Up TELEMED Chronic nasal congestion Aileen bullosa Deviated nasal septum Nasal turbinate hypertrophy Hospital Discharge Instructions No known hospital discharge instructions. Hospital Discharge Medications Medication Dose Units Route Sig Qty Days Order Date Status Ins tructions Desloratadine 5 MG ORAL DAILY 30 Ma [facility] 2021 Active recommend OTC loratadine if not covered Mometasone 1 SPR NASAL TWICE A DAY 17 M [facility] 2021 Active administer into each nostril Encounters Encounter Facility Location Admit/Visit Date Discharge/Departure Date Attending Provider Departed Physician/Pr ovider Office Visit [facility] January 31, 2022 3:52pm January 31, 2022 3:52pm Donna Velazquez Departed Physician/Pr ovider Office Visit [facility] December 27, 2021 3:09pm December 27, 2021 4:16pm Donna Velazquez Encounter Diagnosis Onset Date Chronic nasal congestion Aileen bullosa Deviated nasal septum Nasal turbinate hypertrophy Functional Status No known functional status. Immunizations No known immunizations. Plan of Care No Known Plan of Care Information Social History Query Response Date Recorded Comment Smoking Status Never smoker January 30, 2022 4:52pm Query Response Start Date Stop Date Smoking Status Never smoker Vital Signs Vital Reading Result Reference Range Collection Date/Time Weight n/a Pulse 94 BPM 60-100 December 27, 2021 3:38pm Respiration 16 RPM -December 27, 2021 3:38pm Blood Pressure Systolic 118 100-140 [facility] 2021 3:38pm Blood Pressure Diastolic 72 50-85 [facility] 2021 3:38pm
--- OUTSIDE RECORDS SUMMARY | 2024-07-26 16:45 | XMS_ITS | Encounter Summary ---
Author Organization [facility] Address [address] [place] [address] Care Team Providers Care Industrial Green Systems Designer Name Role Phone Unknown, Provider Primary Care Provider [phone] Suzan Ji WINDOW UNIT AIR CONDITIONING MECHANIC Unavailable Encounter Details Date Type Department Care Team (Late st Contact Info) Description 01/18/2019 Results Only [facility]- [facility] [phone] Aggie Beltrán, [facility] [address] [place] [address] [place] [address] Social History Tobacco Use Types Packs/Day Years [...] Diagnosis Comments PAP TEST- RESULT ONLY Routine 01/18/2019 0:00 EDT documented in this encounter Results * PAP TEST- RESULT ONLY (01/18/2019 0:00 EDT) Pathology Report: CYTOPATHOLOGY REPORT Reports generated via electronic interface contain original data; however they are lacking the format of the original report. Caution should be taken when reading/interpreti ng unformatted reports. Name: ? MARTA LAST ? Accession #: ? [id number] ? : ? 1985 (Age: 33) ??F ?Collect Date: ? 01/18/2019 ? Location: ? [facility] ? Receive Date: ? 01/19/2019 ? Provider: AGGIE BELTRÁN STOCK BLENDER Copy to: SHERLYN HUERTA MD ? Final Report SPECIMEN ADEQUACY ? Satisfactory for Evaluation - transformation zone component present GENERAL CATEGORIZATION ? Negative for Intraepithelial Lesion or Malignancy ?? Last Menstrual Period: 12/31/2018 Hormonal/Contracep tive status: Intrauterine device Specimen/Source: ??Pap Test, Cervix, ThinPrep Imaging System with manual evaluation Document reviewed and electronically signed by: ? Francesca Devine, CT(ASCP) ? Report ??Date: 01/21/2019 08:27 HPV with Pap Test ? Date Ordered: ? 01/21/2019 ? Status: ?? Signed Out ?Date Complete: ? 01/22/2019 ? By: ??System Interface ? Date Reported: ? 01/22/2019 ? Interpretation RESULT: Negative for HPV. No E6 or E7 mRNA is detected from HPV types 16,18,31,33,35, 39,45,51,52,56,58, 59,66, and 68 by rand tacker mediated amplification. Comments Document reviewed and electronically signed by: ? System Interface ? Report date: 01/22/2019 By the signature above, the attending physician certifies that he/she has personally conducted a gross and/or microscopic examination of the described specimens and rendered or confirmed the above diagnosis. End of Report [facility] 01/18/2019 01/19/2019 Aggie Beltrán STOCK BLENDER PATHOLOGY ORDERABLES [facility] [address] [place] [address] documented in this encounter Visit Diagnoses Not on filedocumented in this encounter Care Teams Industrial Green Systems Designer Relationship Specialty Start Date End Date Unknown, Provider, PCP - General 12/23/16 Suzan Ji, [address] [place] [address] 12/23/16 documented as of this encounter
--- OUTSIDE RECORDS SUMMARY | 2024-07-26 16:45 | XMS_ITS | Encounter Summary ---
Author Organization [facility] Address [address] [place] [address] Care Team Providers Care Mailing Section Clerk Name Role Phone Nely Villatoro KRISTI Primary Care Provider [phone] Encounter Details Date Type Department Care Team (Late st Contact Info) Description 02/01/2009 Orders Only [facility] - [facility] ([facility]) [address] [place] [address] [phone] Catarina Ji, [address] [place] [address] Social History Tobacco Use Types Packs/Day Years Used Date Smoking Tobacco: Never Assessed Sex and Gender Information Value Date Recorded Sex Assigned at Not on file Gender Identity Not on file Sexual Orientation Not on file documented as of this encounter Plan of Treatment Not on file documented as of this encounter Procedures Procedure Name Priority Date/Time Associated Diagnosis Comments CYTOPATHOLOGY Routine 02/01/2009 0:00 EDT documented in this encounter Results * CYTOPATHOLOGY (02/01/2009 0:00 EDT) Pathology Report: CYTOPATHOLOGY REPORT ? Reports generated via electronic interface contain original data; ? however they are lacking the format of the original report. ? Caution should be taken when reading/interpreti ng unformatted reports. ? Name: ? MARTA LUO ? Accession #: ? [id number] ? : ? 1985 (Age: 23) ??F ?Collect Date: ? 02/01/2009 ? Location: ? [facility] ? Receive Date: ? 02/02/2009 ? Provider: ?CATARINA JI APRN ? Copy to: ? Specimen/Source: ?Pap Test, Cervix/Endocervix, ThinPrep Imaging System ? with manual evaluation ? Last Menstrual Period: ? 03/18/09 ? Hormonal/Contracep tive Status: ? Orthotricyclen ? Previous Gynecologic Pathology: ? ASC-US ? Other: ? HPVDX - HPV testing requested regardless of diagnosis on current ThinPrep Pap ?? test. ? SPECIMEN ADEQUACY ? Satisfactory for Evaluation ? - transformation zone component present ? GENERAL CATEGORIZATION ? Negative for Intraepithelial Lesion or Malignancy ? Document reviewed and electronically signed by: ? Jeffry Mancia, CT(ASCP) ? Report Date: ??02/08/2009 10:57 ? End of Report ? [facility] 02/01/2009 02/02/2009 Catarina Ji ALLIGATOR TRAPPER PATHOLOGY ORDERABL ES [facility] [address] [place] [address] documented in this encounter Visit Diagnoses Not on filedocumented in this encounter Care Teams Mailing Section Clerk Relationship Specialty Start Date End Date Nely Villatoro APRN [address] [place] [address] PCP - General 02/06/09 08/10/09 documented as of this encounter
--- OUTSIDE RECORDS SUMMARY | 2024-07-26 16:45 | XMS_ITS | Encounter Summary ---
Author Organization [facility] Address [address] [place] [address] Care Team Providers Care Superintendent Water And Sewer Systems Name Role Phone Unknown, Provider Primary Care Provider Suzan Ji CAMP ADVISOR Unavailable [phone] Encounter Details Date Type Department Care Team (Latest Contact Info) Description 04/09/2018 17:39 EDT - 04/09/2018 23:59 EDT Hospital Encounter [address] [address] Unknown, Provider, Discharge Disposition: Home or Self Care Social History Tobacco Use Types Packs/Day Years Used Date Smoking Tobacco: Never Assessed Sex and Gender Information Value Date Recorded Sex Assigned at Not on file Gender Identity Not on file Sexual Orientation Not on file documented as of this encounter Discharge Disposition Disposition Code Departure Means Destination Home or Self Half-Way documented in this encounter Plan of Treatment Not on file documented as of this encounter Visit Diagnoses Not on filedocumented in this encounter Care Teams Superintendent Water And Sewer Systems Relationship Specialty Start Date End Date Unknown, Provider, PCP - General 12/23/16 Suzan Ji NP [address] [place] [address] 12/23/16 documented as of this encounter
--- OUTSIDE RECORDS SUMMARY | 2024-07-26 16:45 | XMS_ITS | Encounter Summary ---
Author Organization [facility] Address [address] [place] [address] Care Team Providers Care Wood Shingle Roofer Name Role Phone Unavailable Primary Care Provider Unavailabl e Encounter Details Date Type Department Care Team (Late st Contact Info) Description 06/16/2008 10:17 EDT - 06/16/2008 11:59 EDT Hospital Encounter [facility] - Other [address] [place] [address] Nely Ridley MD [address] [place] [address],[address] [place] [address] Alvaro Colindres MD [address] [facility] [place] [address] Discharge Disposition: Home or Self Care Social [...]
--- OUTSIDE RECORDS SUMMARY | 2024-07-26 16:45 | XMS_ITS | Encounter Summary ---
Author Organization [facility] Address [address] [place] [address] Care Team Providers Care Railroad Cook Name Role Phone Unavailable Primary Care Provider Unavailabl e Encounter Details Date Type Department Care Team (Late st Contact Info) Description 12/04/2007 15:48 EST Hospital Encounter [facility] - Other [address] [place] [address] Nely Pena MD [address] [place] [address],[address] [place] [address] Discharge Disposition: Home-Health Care Svc Social History Tobacco Use Types Packs/Day Years Used Date Smoking Tobacco: Never Assessed Sex and Gender Information Value Date Recorded Sex Assigned at Not on file Gender Identity Not on file Sexual Orientation Not on file documented as of this encounter Discharge Disposition Disposition Code Departure Means Destination Home-Health Care Svc documented in this encounter Plan of Treatment Not on file documented as of this encounter Procedures Procedure Name Priority Date/Time Associated Diagnosis Comments HPV DETECTION, HIGH RISK TYPES Routine 06/16/2008 9:20 EDT CYTOPATHOLOGY Routine 06/16/2008 0:00 EDT documented in this encounter Results * HUMAN PAPILLOMA VIRUS DNA TEST (06/16/2008 9:20 EDT) Specimen Description Cervix, ThinPrep vial [facility] Result Negative for HPV types 16, 18, 31, 33, 35, 39, 45, 51, 52, 56, 58, 59, and 68. [facility] Report Status Final [id number] [facility] 06/16/2008 9:20 EDT 06/27/2008 9:45 EDT Nely Pena MD MICROBIOLOGY - GENER AL ORDERABLES [facility] [address] [place] [address] * CYTOPATHOLOGY (06/16/2008 0:00 EDT) Pathology Report: CYTOPATHOLOGY REPORT ? Reports generated via electronic interface contain original data; ? however they are lacking the format of the original report. ? Caution should be taken when reading/interpreti ng unformatted reports. ? Name: ? MARTA LUO ? Accession #: ? [id number] ? : ? 1985 (Age: 22) ??F ?Collect Date: ? 06/16/2008 ? Location: ? [facility] ? Receive Date: ? 06/17/2008 ? Provider: ?NELY PENA MD ? Copy to: ? Specimen/Source: ?ThinPrep Pap Test, Cervix, processed on Cytyc ThinPrep ?? Imaging System, with manual evaluation ? Last Menstrual Period: ? 08/14/08 ? Hormonal/Contracep tive Status: ? Yes ? Previous Gynecologic Pathology: ? ASC-US: '05 ? HPV: + recent 02/08 ? Treatment History: ? Colposcopy: neg. ? Other: ? HPVDX - HPV testing requested regardless of diagnosis on current ThinPrep Pap ?? test. ? SPECIMEN ADEQUACY ? Satisfactory for Evaluation ? - transformation zone component present ? GENERAL CATEGORIZATION ? Negative for Intraepithelial Lesion or Malignancy ? Document reviewed and electronically signed by: ? Qian Mount, MD ? Report Date: ??06/24/2008 11:51 ? End of Report ? [facility] 06/16/2008 06/17/2008 Nely Pena MD PATHOLOGY ORDERABLES [facility] [address] [place] [address] documented in this encounter Visit Diagnoses Not on filedocumented in this encounter
--- OUTSIDE RECORDS SUMMARY | 2024-07-26 16:45 | XMS_ITS | Continuity of Care Document ---
Author Organization [facility] Address [address] [place] [address] Phone Care Team Providers Care Food Assembler Name Role Phone PCP, of Choice Primary Care Provider DO Donna Haas Attending Provider Loretta Oh Primary Care Provider Chief Complaint and Reason for Visit Chief Complaint New Patient Follow Up TELEMED Follow Up Nasal Congestion,Deviated nasal septum,Hypertrophy Reason for Visit Chronic nasal conges tion Aileen bullosa Deviated nasal septum Nasal turbinate hypertrophy Chronic nasal congestion Aileen bullosa Deviated nasal septum Nasal turbinate hypertrophy Chronic nasal congestion Aileen bullosa Deviated nasal septum Nasal turbinate hypertrophy Allergies, Adverse Reactions, Alerts Allergen Type Severity Reaction Last Updated Verified Status doxycycline Adverse Reaction malaise May 17, 2022 7:4 3am Yes Active Social History Smoking Status Status Start Date End Date Date of Observa tion Never smoked tobacco (finding) May 17, 2022 7:49am Observation Status Observation Response Date of Response Alcohol Use No May 17, 2022 7:49am Substance/Street Drug Use No April 202021 7:49am substance use type does not use May 17 7:49am Smoking Status Never smoker May 17, 2022 7:49am Additional Data Assigned Sex Female Problems Active Problems Medical Problem Onset Date Status Nasal turbinate hypertrophy Acti ve Aileen bullosa Active Chronic nasal congestion Active Deviated nasal septum Active Medications Medication Status Dose Units Route Directions Qty Days St art Date End Date Instructions Multivitamin Active 1 TAB PO DAILY May 06, 2022 12:00am Ascorbic Acid (Vitamin C) (Vitamin C) 500 mg Tablet Active 500 MG PO DAILY May 06, 2022 12:00am [place]-3 Fatty Acids (Fish Oil) Capsule Active 1000 MG PO DAILY May 06, 2022 12:00am Vitamin D3-Vitamin K2 Active 1 TAB PO DAILY May 06, 2022 12:00am Lactobacillus Acidophilus (Probiotic) 10 billion cell capsule Active 10 CELL PO DAILY May 17, 2022 12:00am Ondansetron Active 8 MG PO THREE TI MES A DAY May 17, 2022 12:00am Cephalexin Active 500 MG PO THREE LEANN ES A DAY 09 05May 17, 2022 12:00am Vital Signs Vital Reading Result Reference Range Collection Date/Time Heart Rate 94 /min 60-100 December 27 4:38pm Respiratory rate 16 /min 12-December 27, 2021 4:38pm BP Systolic 118 mm[Hg] 100-140 December 27 4:38pm BP Diastolic 72 mm[Hg] 50-85 December 27 4:38pm Height 67 [in_i] May 17, 2022 7:49am Weight 65.77 kg May 17, 2022 7:49am Body Temperature 97.7 [degF] 97.6-99.6 May 17, 2022 12:24pm Heart Rate 87 /min 60-100 May 17, 2022 12:24pm Respiratory rate 18 /min 12-May 17, 2022 12:24pm Oxygen saturation by Pulse oximetry 99 % 95-100 May 17, 2022 12:2 4pm BP Systolic 122 mm[Hg] 100-140 May 17, 2022 12:24pm BP Diastolic 73 mm[Hg] 50-85 May 17, 2022 12:24pm BMI (Body Mass Index) 22.7 kg/m2 April 192021 1:46pm Advance Directives Advance Directive Response Recorded Date/ Time Does patient have an Advanced Directive? No December 27, 2021 4:09pm Do we have a copy on file here at [facility]? No December 27, 2021 4:09pm Pt has a Living Will? No December 4:09pm Do we have a copy on file here at [facility]? No December 27, 2021 4:09pm Pt has a Power of Elementary Substitute Teacher? No Bunny 2021 4:09pm Do we have a copy on file here at [facility]? No December 27, 2021 4:09pm Insurance Providers Guarantor MARTA Gregg SHALA Address [address] [place] [address] Contact Info. Home Phone: Payer Policy Id Coverage Id Subscriber's Name Subscriber Id Effective Date Expiration Date [facility] [id number] MARTA Escobedo SHALA [id number] SELF PAY Self N/A Encounters Encounter Location(s) Arrival/Admit Date Discharge/Depart Date Provider(s) [facility]arted Phys[facility]/Prov ider [facility] December 27, 2021 4:09pm December 27, 2021 5:16pm Donna Velazquez DO Departed Physician/Prov ider [facility] January 31, 2022 3:52pm January 31, 2022 3:52pm Donna Velazquez DO Departed Physician/Prov ider [facility] April 25, 2022 2:40pm April 25, 2022 2:40pm Donna Velazquez DO Non-[facility] May 17, 2022 7:20am Donna Velazquez DO Recent Diagnosis Onset Date Chronic nasal congestion Aileen bullosa Deviated nasal septum Nasal turbinate hypertrophy Chronic nasal congestion Aileen bullosa Deviated nasal septum Nasal turbinate hypertrophy Chronic nasal congestion Aileen bullosa Deviated nasal septum Nasal turbinate hypertrophy Assessments Diagnosis Onset Date Resolution Status Chronic nasal congestion chr onic Aileen bullosa chronic Deviated nasal septum chroni c Nasal turbinate hypertrophy chronic Chronic nasal congestion chr onic Aileen bullosa chronic Deviated nasal septum chroni c Nasal turbinate hypertrophy chronic Chronic nasal congestion chr onic Aileen bullosa chronic Deviated nasal septum chroni c Nasal turbinate hypertrophy chronic Plan of Treatment Future Tests Future scheduled test information is unavailable Pending Tests Pending diagnostic test information is unavailable Future Visits Future appointment information is unavailable Referrals to Other Providers Referral information is unavailable Future Procedures Procedure Name Scheduled Date Cardiac Monitoring May 17, 2022 8:02 am Future Medications Future medication information is unavailable Patient Instructions [facility] Preop Septo Turbinat es
--- OUTSIDE RECORDS SUMMARY | 2024-07-26 16:45 | XMS_ITS | Encounter Summary ---
Author Organization [facility] Address [address] [place] [address] Care Team Providers Care Mangle Operator Garments Name Role Phone Suzan Ji GOVERNMENT RELATIONS MANAGER Primary Care Provider [phone] Encounter Details Date Type Department Care Team (Latest Contact Info) Description 03/26/2010 10:10 EDT - 03/26/2010 23:[address] [facility] - Other [address] [place] [address] Cony Mae PA [address] [place] [address] Discharge Disposition: Home or Self Care Social [...] on filedocumented in this encounter Care Teams Mangle Operator Garments Relationship Specialty Start Date End Date Suzan Ji NP [address] [place] [phone] PCP - General 08/11/09 12/22/16 documented as of this encounter
--- OUTSIDE RECORDS SUMMARY | 2024-07-26 16:45 | XMS_ITS | Encounter Summary ---
Author Organization [facility] Address [address] [place] [address] Care Team Providers Care Manager Public Name Role Phone Unavailable Primary Care Provider Unavailabl e Encounter Details Date Type Department Care Team (Late st Contact Info) Description 02/01/2009 12:32 EDT Hospital Encounter [facility] - Other [address] [place] [address] Suzan Ji, [address] [place] [address] Discharge Disposition: Home or Self Care Social [...] Date/Time Associated Diagnosis Comments SURGICAL PATHOLOGY Routine 08/09/2009 0:00 EDT HPV DETECTION, HIGH RISK TYPES Routine 02/01/2009 15:08 EDT documented in this encounter Results * SURGICAL PATHOLOGY (08/09/2009 0:00 EDT) Pathology Report: SURGICAL PATHOLOGY REPORT ? Reports generated via electronic interface contain original data; ? however they are lacking the format of the original report. ? Caution should be taken when reading/interpreti ng unformatted reports. ? Name: ? MARTA PERRY ? Accession #: ? [id number] ? : ? 1985 (Age: 23) ??F ? Collect Date: ? 08/09/2009 ? Location: ? [facility] ? Receive Date: ? 08/09/2009 ? Provider: CARLO NELSON MD ? Copy to: ? Final Pathologic Diagnosis: ? A. ?Adenoids, adenoidectomy: ? 1. ?Respiratory epithelium with reactive lymphoid hyperplasia. ? B. ?Tonsil, right, tonsillectomy: ? 1. ?Acute and chronic tonsillitis with reactive lymphoid hyperplasia. ?? 2. ? Actinomyces-like organisms identified. ? C. ?Tonsil, left, tonsillectomy: ? 1. ?Acute and chronic tonsillitis with reactive lymphoid hyperplasia. ?? 2. ? Actinomyces-like organisms identified. ? Document reviewed and electronically signed by: ? Lowell Byrd, MD ? Report ??Date: 08/11/2009 14:30 ? By the signature above, the attending physician certifies that he/she has ? personally conducted a gross and/or microscopic examination of the described ? specimens and rendered or confirmed the above diagnosis. ? Specimen(s) Received: ? A. ?Adenoids ? B. ? Right tonsil ? C. ? Left tonsil ? Clinical History: ? 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 Gross Description: ? Received in formalin labelled Perry, Marta and adenoids are 2.0 x 1.5 x 0.4 cm of multiple malhotra-pink irregular soft tissue fragments. ??The specimen is ?? entirely submitted as (A). ? Received in formalin labelled Marta Perry and right tonsil is an ovoid ? malhotra-pink soft tissue measuring 2.5 x 2.0 x 0.8 cm and is partially surfaced by a malhotra, smooth to wrinkled mucosa. ??The cut surfaces are malhotra-pink with a crypt-like architecture. ??No discrete nodule is identified. ??A premium representative section is ?? submitted as (B). ? Received in formalin labelled Perry, Marta and left tonsil is a malhotra-pink ? ovoid unoriented soft tissue measuring 2.7 x 1.7 x 1.3 cm and is partially ? surfaced by a malhotra, smooth to wrinkled mucosa. ??The cut surfaces are malhotra-pink ? with a crypt-like architecture. ??No discrete nodule is identified. ??A ? premium representative section is submitted as (C). ??(Denys Clark)/tej ? End of Report ? [facility] 08/09/2009 08/09/2009 12: 59 EDT Carlo Nelson MD PATHOLOGY ORDERABLES Performing Organization Address City/State/[facility] Co de Phone Number [facility] [address] [place] [address] * HUMAN PAPILLOMA VIRUS DNA TEST (02/01/2009 15:08 EDT) Specimen Description Cervix, ThinPrep vial [facility] Result Negative for HPV types 16, 18, 31, 33, 35, 39, 45, 51, 52, 56, 58, 59, and 68. [facility] Report Status Final 02/14/2009 [facility] 02/01/2009 15:0 8 EDT 02/08/2009 15:08 EDT Suzan Ji NP MICROBIOLOGY - GEN ERAL ORDERABLES Performing Organization Address City/State/[facility] Co de Phone Number [facility] [address] [place] [address] documented in this encounter Visit Diagnoses Not on filedocumented in this encounter
--- OUTSIDE RECORDS SUMMARY | 2024-07-26 16:45 | XMS_ITS | Encounter Summary ---
Author Organization [facility] [place] [address] Care Team Providers Care Billet Grinder Name Role Phone Nely Villatoro APRN Primary Care Provider [phone] Encounter Details Date Type Department Care Team (Late st Contact Info) Description 03/31/2019 Ancillary Procedure Radiology Library at [facility] MARCI [place]ws [phone] Rick Golden MD [address] [place] [address] Social History Tobacco Use Types Packs/Day Years [...] Associated Diagnosis Comments FILM LIBRARY STORAGE ONLY MR SPINE Routine 03/31/2019 12:00 AM EDT documented in this encounter Results * Film Library- Storage Only MR Spine (03/31/2019 12:00 AM EDT) Narrative DENISE - 04/05/2019 12:38 PM EDT This exam is auto-finalizing. It's purpose is for storage only. Rick Golden MD IMG FILM LIBRARY ORD ERABLES [facility] Dionisio CO documented in this encounter Visit Diagnoses Not on filedocumented in this encounter Care Teams Billet Grinder Relationship Specialty Start Date End Date Nley Villatoro APRN [address] [place] [address] PCP - General 09/11/10 04/04/19 documented as of this encounter
--- OUTSIDE RECORDS SUMMARY | 2024-07-26 16:45 | XMS_ITS | Referral Summary ---
Author Organization [facility] Address [address] [place] [address] Care Team Providers Care Mushroom Packer Name Role Phone Unknown, Provider Primary Care Provider Suzan Ji NURSE AIDE EVALUATOR Unavailable [phone] Social History Tobacco Use Types Packs/Day Years Used Date Smoking Tobacco: Never Assessed Interpersonal Safety Answer Date Record ed Physically Hurt Never 05/21/2020 Verbally Threaten Not on file 05/21/2020 Sex and Gender Information Value Date Recorded Sex Assigned at Not on file Gender Identity Not on file Sexual Orientation Not on file Plan of Treatment Not on file Care Teams Mushroom Packer Relationship Specialty Start Date End Date Unknown, Provider, PCP - General 12/23/16 Suzan Ji, NURSE AIDE EVALUATOR [address] [place] [phone] 12/23/16
--- OUTSIDE RECORDS SUMMARY | 2024-07-26 16:45 | XMS_ITS | Encounter Summary ---
Author Organization [facility] [place] [address] Care Team Providers Care State Game Protector Name Role Phone Nely Villatoro APRN Primary Care Provider [phone] Encounter Details Date Type Department Care Team (Late st Contact Info) Description 03/24/2019 Ancillary Procedure Radiology Library at [facility] MARCI Mathews [phone] Rick Golden MD [address] [place] [address] Social History Tobacco Use Types Packs/Day Years [...] Associated Diagnosis Comments FILM LIBRARY STORAGE ONLY DX SPINE Routine 03/24/2019 12:00 AM EDT documented in this encounter Results * Film Library- Storage Only DX Spine (03/24/2019 12:00 AM EDT) Narrative DENISE - 04/05/2019 12:37 PM EDT This exam is auto-finalizing. It's purpose is for storage only. Rick Golden MD IMG FILM LIBRARY ORD ERABLES [facility] Dionisio MD documented in this encounter Visit Diagnoses Not on filedocumented in this encounter Care Teams State Game Protector Relationship Specialty Start Date End Date Nely Villatoro APRN [address] [place] [address] PCP - General 09/11/10 04/04/19 documented as of this encounter
--- OUTSIDE RECORDS SUMMARY | 2024-07-26 16:45 | XMS_ITS | Continuity of Care Document ---
Author Organization [facility] Address [address] [place] [address] Phone Care Team Providers Care Burrito Maker Name Role Phone PCP, of Choice Primary Care Provider DO Donna Haas Attending Provider Loretta Oh Primary Care Provider Chief Complaint and Reason for Visit Chief Complaint New Patient Follow Up TELEMED Follow Up Nasal Congestion,Deviated nasal septum,Hypertrophy 1 Week Post Op Follow Up Reason for Visit Chronic nasal conges tion [...] Updated Verified Status doxycycline Adverse Reaction malaise Decembe r 2021 3:49pm Yes Active Social History Smoking Status Status Start Date End Date Date of Observa tion Never smoked tobacco (finding) August 21, 2022 3:55pm Observation Status Observation Response Date of Response Alcohol Use No May 17, 2022 6:49am Substance/Street Drug Use No April 202021 6:49am substance use type does not use May 17 6:49am Smoking Status Never smoker August 21 2:55pm Additional Data Assigned Sex Female Problems Inactive/Resolved Problems Medical Problem Onset Date Status 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 Chronic nasal congestion Resolve d Deviated nasal septum Resolved Medications Medication Status Dose Units Route Directions Qty Days St art Date End Date Instructions Multivitamin Active 1 TAB PO DAILY May 05, 2022 11:00p m Ascorbic Acid (Vitamin C) (Vitamin C) 500 mg Tablet Active 500 MG PO DAILY May 05, 2022 11:00p m [place]-3 Fatty Acids (Fish Oil) Capsule Active 1000 MG PO DAILY May 05, 2022 11:00p m Vitamin D3-Vitamin K2 Active 1 TAB PO DAILY May 05, 2022 11:00p m Lactobacillus Acidophilus (Probiotic) 10 billion cell capsule Active 10 CELL PO DAILY May 16, 2022 11:00p m Ondansetron Active 8 MG PO THREE TI MES A DAY May 16, 2022 11:00p m Cephalexin Discontin ued 500 MG PO THREE TIMES A DAY 09 05May 16, 2022 11:00p m May 23, 2022 11:01pm Vital Signs Vital Reading Result Reference Range Collection Date/Time Heart Rate 94 /min 60-100 December 27 3:38pm Respiratory rate 16 /min -December 27, 2021 3:38pm BP Systolic 118 mm[Hg] 100-140 December 27 3:38pm BP Diastolic 72 mm[Hg] 50-85 December 27 3:38pm Height 67 [in_i] May 17, 2022 6:49am Weight 65.77 kg May 17, 2022 6:49am Body Temperature 97.7 [degF] 97.6-99.6 May 17, 2022 11:24am Heart Rate 87 /min 60-100 May 17, 2022 11:24am Respiratory rate 18 /min 12-May 17, 2022 11:24am Oxygen saturation by Pulse oximetry 99 % 95-100 May 17, 2022 11:2 4am BP Systolic 122 mm[Hg] 100-140 May 17, 2022 11:24am BP Diastolic 73 mm[Hg] 50-85 May 17, 2022 11:24am BMI (Body Mass Index) 22.7 kg/m2 April 192021 12:46pm Height 67 [in_i] May 23 2:42pm Weight 63.50 kg May 23 2:42pm Heart Rate 93 /min 60-100 May 23 2:42pm Respiratory rate 16 /min -May 23, 2022 2:42pm Oxygen saturation by Pulse oximetry 99 % 95-100 May 23, 2022 2:4 2pm BP Systolic 127 mm[Hg] 100-140 May 23 2:42pm BP Diastolic 73 mm[Hg] 50-85 May 23 2:42pm BMI (Body Mass Index) 21.9 kg/m2 May 23, 2022 2:42pm Height 67 [in_i] September 19, 2 022 3:51pm Weight 63.50 kg September 19, 2 022 3:51pm Heart Rate 96 /min 60-100 September 19, 2 022 3:51pm Respiratory rate 20 /min -September 3:51pm Oxygen saturation by Pulse oximetry 97 % 95-100 September 19, 2022 3 :51pm BP Systolic 138 mm[Hg] 100-140 September 19, 2 022 3:51pm BP Diastolic 80 mm[Hg] 50-85 September 19, 2 022 3:51pm BMI (Body Mass Index) 21.9 kg/m2 [facility] 2021 3:51pm Advance Directives Advance Directive Response Recorded Date/ Time Does patient have an Advance Directive? No May 23, 2022 2:09pm Does patient have a COLST form? No May 23, 2022 2:09pm Insurance Providers Guarantor MARTA LAST Address [address] [place] [address] Contact Info. Home Phone: Payer Policy Id Coverage Id Subscriber's Name Subscriber Id Effective Date Expiration Date [facility] [id number] MARTA LAST [id number] 000 SELF PAY Self N/A Encounters Encounter Location(s) Arrival/Admit Date Discharge/Depart Date Provider(s) Departed Physician/Prov ider Office Visit [facility] December 27, 2021 3:09pm December 27, 2021 4:16pm Donna Velazquez DO Departed Physician/Prov ider Office Visit [facility] ENT January 31, 2022 2:52pm January 31, 2022 2:52pm Donna Velazquez DO Departed Physician/Prov ider Office Visit [facility] ENT April 25, 2022 1:40pm April 25, 2022 1:40pm Donna Velazquez DO Non-patient / Non-visit [facility] ENT May 17, 2022 6:20am Donna Velazquez DO Departed Physician/Prov ider Office Visit [facility] ENT May 23, 2022 2:09pm May 23, 2022 2:57pm Donna Velazquez DO Departed Physician/Prov ider Office Visit [facility] ENT September 19, 2022 3:46pm September 19, 2022 4:11pm Donna Velazquez DO Recent Diagnosis Onset Date [...] Onset Date Resolution Status Chronic nasal congestion res olved Aileen bullosa resolved Deviated nasal septum resolv ed Nasal turbinate hypertrophy resolved Chronic nasal congestion res olved Aileen bullosa resolved Deviated nasal septum resolv ed Nasal turbinate hypertrophy resolved Chronic nasal congestion res olved Aileen bullosa resolved Deviated nasal septum resolv ed Nasal turbinate hypertrophy resolved Chronic nasal congestion res olved Aileen bullosa resolved Deviated nasal septum resolv ed Nasal turbinate hypertrophy resolved Chronic nasal congestion res olved Aileen bullosa resolved Deviated nasal septum resolv ed Nasal turbinate hypertrophy resolved Plan of Treatment Future Tests Future scheduled test information is unavailable Pending Tests Pending diagnostic test information is unavailable Future Visits Future appointment information is unavailable Referrals to Other Providers Referral information is unavailable Future Procedures Procedure Name Ordered Date Scheduled Date Cardiac Monitoring May 17, 2022 7:02am April 202021 7:02am Future Medications Future medication information is unavailable Patient Instructions [facility] Preop Septo Turbinat es
--- OUTSIDE RECORDS SUMMARY | 2024-07-26 16:45 | XMS_ITS | Continuity of Care Document ---
Author Organization [facility] Address [address] [place] [address] Phone Support Name Relationship Address Phone BRANDIE LAST Spouse Unknown PCP, of Choice Primary Care Provider Unknown Unav ailable DO Donna Velazquez Attending Provider [facility] [place] [address] Katherine [place] [address] Chief Complaint and Reason for Visit Chief Complaint New Patient Allergies, Adverse Reactions, Alerts Allergen Type Severity Reaction Last Updated Verified Status doxycycline Allergy malaise December 27, 2021 3:28pm Yes Active Social History Smoking Status Status Start Date End Date Date of Observa tion Never smoked tobacco (finding) December 27, 2021 3:30pm Observation Status Observation Response Date of Response Smoking Status Never smoker December 27, 2021 3:30pm Additional Data Assigned Sex Female Medications Medication Status Dose Units Route Directions Qty Days St art Date End Date Instructions Desloratadine Active 5 MG PO DAILY 30 Mar 2021 4:03pm recommend OTC loratadine if not covered Mometasone Active 1 SPR NA TWICE A DAY 17 M [facility] 2021 4:03pm administer into each nostril Vital Signs Vital Reading Result Reference Range Collection Date/Time Heart Rate 94 /min 60-100 December 27 3:38pm Respiratory rate 16 /min 12-24 December 27, 2021 3:38pm BP Systolic 118 mm[Hg] 100-140 December 27 3:38pm BP Diastolic 72 mm[Hg] 50-85 December 27 3:38pm Advance Directives Advance Directive Response Recorded Date/ Time Does patient have an Advanced Directive? No March 10th, 2022 3:09pm Do we have a copy on file here at [facility]? No December 27, 2021 3:09pm Pt has a Living Will? No December 3:09pm Do we have a copy on file here at [facility]? No December 27, 2021 3:09pm Pt has a Power of Volcanologist? No Bunny orestes 2021 3:09pm Do we have a copy on file here at [facility]? No December 27, 2021 3:09pm Insurance Providers Guarantor MARTA LAST Address [address] [place] [id number] Contact Info. Home Phone: Payer Policy Id Coverage Id Subscriber's Name Subscriber Id Effective Date Expiration Date [facility] [id number] MARTA LAST [id number] 000 SELF PAY Self N/A Encounters Encounter Location(s) Arrival/Admit Date Discharge/Depart Date Provider(s) Departed Physician/Prov ider Office Visit [facility] December 27, 2021 3:09pm December 27, 2021 4:16pm Donna Velazquez , DO
--- OUTSIDE RECORDS SUMMARY | 2024-07-26 16:45 | XMS_ITS | Clinical Summary ---
Author Organization [facility] Address [address] [place] [address] Care Team Providers Care Computer Science Professor Name Role Phone Unknown, Provider Primary Care Provider Suzan Ji CUSTOMER ASSISTANCE REPRESENTATIVE Unavailable Social History Tobacco Use Types Packs/Day Years Used Date Smoking Tobacco: Never Assessed Interpersonal Safety Answer Date Record ed Physically Hurt Never 05/21/2020 Verbally Threaten Not on file 05/21/2020 Sex and Gender Information Value Date Recorded Sex Assigned at Not on file Gender Identity Not on file Sexual Orientation Not on file Plan of Treatment Health Maintenance Due Date Last Done Comments Hepatitis C Screen 1985 Hepatitis B Vaccine (1 of 3 - 19+ 3-dose series) 12/20 COVID-19 Vaccine (2022-24 season) 2023 Care Teams Computer Science Professor Relationship Specialty Start Date End Date Unknown, Provider, PCP - General 12/23/16 Suzan Ji, CUSTOMER ASSISTANCE REPRESENTATIVE [address] [place] [phone] 12/23/16
--- OUTSIDE RECORDS SUMMARY | 2024-07-26 16:45 | XMS_ITS | Continuity of Care Document ---
Author Organization [facility] Address [address] [place] [address] Phone Care Team Providers Care Bakery Technician Name Role Phone PCP, of Choice Primary Care Provider DO Donna Haas Attending Provider Loretta Oh Primary Care Provider Chief Complaint and Reason for Visit Chief Complaint New Patient Follow Up TELEMED Follow Up Nasal Congestion,Deviated nasal septum,Hypertrophy 1 Week Post Op Reason for Visit Chronic nasal conges tion [...] Verified Status doxycycline Adverse Reaction malaise May 23, 2022 3:41pm Yes Active Social History Smoking Status Status [...] MG PO DAILY May 06, 2022 12:00am [place]-3 Fatty Acids (Fish Oil) Capsule Active 1000 [...] December 27 4:38pm Respiratory rate 16 /min -December 27, 2021 4:38pm BP Systolic 118 mm[Hg] 100-140 December 27 4:38pm BP Diastolic 72 mm[Hg] 50-85 December 27 4:38pm Height 67 [in_i] May 17, 2022 7:49am Weight 65.77 kg May 17, 2022 7:49am Body Temperature 97.7 [degF] 97.6-99.6 May 17, 2022 12:24pm Heart Rate 87 /min 60-100 May 17, 2022 12:24pm Respiratory rate 18 /min 10-12May 17, 2022 12:24pm Oxygen saturation by Pulse oximetry 99 % 95-100 May 17, 2022 12:2 4pm BP Systolic 122 mm[Hg] 100-140 May 17, 2022 12:24pm BP Diastolic 73 mm[Hg] 50-85 May 17, 2022 12:24pm BMI (Body Mass Index) 22.7 kg/m2 April 192021 1:46pm Height 67 [in_i] May 23 3:42pm Weight 63.50 kg May 23 3:42pm Heart Rate 93 /min 60-100 May 23 3:42pm Respiratory rate 16 /min 12-24 May 23, 2022 3:42pm Oxygen saturation by Pulse oximetry 99 % 95-100 May 23, 2022 3:4 2pm BP Systolic 127 mm[Hg] 100-140 May 23 3:42pm BP Diastolic 73 mm[Hg] 50-85 May 23 3:42pm BMI (Body Mass Index) 21.9 kg/m2 May 23, 2022 3:42pm Advance Directives Advance Directive Response Recorded Date/ Time Does patient have an Advance Directive? No May 23, 2022 3:09pm Does patient have a COLST form? No May 23, 2022 3:09pm Insurance Providers Guarantor MARTA LAST Address [address] [place] [address] Contact Info. Home Phone: Payer Policy Id Coverage Id Subscriber's Name Subscriber Id Effective Date Expiration Date [facility] [id number] MARTA LAST [id number] 000 SELF PAY Self N/A Encounters Encounter Location(s) Arrival/Admit Date Discharge/Depart Date Provider(s) Departed Physician/Prov ider Office Visit [facility] ENT December 27, 2021 4:09pm December 27, 2021 5:16pm Donna Velazquez DO Departed Physician/Prov ider Office Visit [facility] ENT January 31, 2022 3:52pm January 31, 2022 3:52pm Donna Velazquez DO Departed Physician/Prov ider Office Visit [facility] ENT April 25, 2022 2:40pm April 25, 2022 2:40pm Donna Velazquez DO Non-patient / Non-visit [facility] ENT May 17, 2022 7:20am Donna Velazquez DO Departed Physician/Prov ider Office Visit [facility] ENT May 23, 2022 3:09pm May 23, 2022 3:57pm Donna Velazquez DO Recent Diagnosis Onset Date [...]
--- OUTSIDE RECORDS SUMMARY | 2024-07-26 16:45 | XMS_ITS | Encounter Summary ---
Author Organization [facility] Address [address] [place] [address] Care Team Providers Care Medical Staffing Coordinator Name Role Phone Nely Villatoro APRN Primary Care Provider [phone] Suzan Ji NP Primary Care Provider [phone] Encounter Details Date Type Department Care Team (Late st Contact Info) Description 12/04/2007 Results Only [facility] [address] [place] [address] Nely Pena MD [address] [place] [address],[address] [place] [address] Social History Tobacco Use Types Packs/Day Years [...] Comments HPV DETECTION, HIGH RISK TYPES Routine 12/04/2007 12:59 EST CYTOPATHOLOGY Routine 12/04/2007 0:00 EST documented in this encounter Results * HUMAN PAPILLOMA VIRUS DNA TEST (12/04/2007 12:59 EST) Specimen Description Cervix, ThinPrep vial [facility] Result Positive for one or more of HPV types 16,18,31,33,35 ,39,45,51,52,5 6,58,59, or 68. These high/intermedi ate risk HPV types are associated with dysplasia and some cervical cancers. [facility] Report Status Final [id number] [facility] 12/04/2007 12:5 9 EST 12/14/2007 12:59 EST Nely Pena MD MICROBIOLOGY - GENER AL ORDERABLES [facility] [address] [place] [address] * CYTOPATHOLOGY (12/04/2007 0:00 EST) Pathology Report: CYTOPATHOLOGY REPORT Reports generated via electronic interface contain original data; however they are lacking the format of the original report. Caution should be taken when reading/interpreti ng unformatted reports. Name: ? LUOMARTA ? Accession #: ? [id number] : ? 1985 (Age: 21) ??F ?Collect Date: ? 12/04/2007 Location: ? [facility] ? Receive Date: ? 12/08/2007 Provider: ?NELY PENA MD Copy to: ? Specimen/Source: ?ThinPrep Pap Test, Cervix, processed on [employer] ThinPrep Imaging System, with manual evaluation Last Menstrual Period: ? 11/27/06 Previous Gynecologic Pathology: ? ASC-US: '- RACHELLE: '- Other: ? HPVDX - HPV testing requested regardless of diagnosis on current ThinPrep Pap test. ? SPECIMEN ADEQUACY ? Satisfactory for Evaluation - transformation zone component present GENERAL CATEGORIZATION ? Negative for Intraepithelial Lesion or Malignancy ? Document reviewed and electronically signed by: ? Jeffry Mancia, SUYAPA(ASCP) ? Report Date: ??12/11/2007 14:20 End of Report [facility] 12/04/2007 12/08/2007 Nely Pena MD PATHOLOGY ORDERABLES Performing Organization Address City/State/[facility] Co de Phone Number [facility] [address] [place] [address] documented in this encounter Visit Diagnoses Not on filedocumented in this encounter Care Teams Medical Staffing Coordinator Relationship Specialty Start Date End Date Nely Villatoro APRN [address] [place] [phone] PCP - General 02/06/09 08/10/09 Suzan iJ NP [address] [place] [address] PCP - General 08/11/09 12/22/16 documented as of this encounter
--- OUTSIDE RECORDS SUMMARY | 2024-07-26 16:45 | XMS_ITS | Encounter Summary ---
Author Organization [facility] Address [address] [place] [address] Care Team Providers Care Theatrical Rigger Name Role Phone Unknown, Provider Primary Care Provider Suzan Ji INDEX EDITOR Unavailable [phone] Encounter Details Date Type Department Care Team (Late st Contact Info) Description 05/13/2022 Lab Requisition [facility] - [facility] [address] [place] [address] Outr Resulting Lab, Provider Social History Tobacco Use Types Packs/Day Years [...] Procedure Name Priority Date/Time Associated Diagnosis Comments ZZCOVID-19 TEST [facility] PCR Today 05/13/2022 15:10 EDT COVID-19 TESTING Routine 05/13/2022 15:1 0 EDT documented in this encounter Results * COVID-19 TEST [facility] PCR (05/13/2022 15:10 EDT) Swab 05/13/2022 15:1 0 EDT 05/14/2022 16:05 EDT Provider Outr Resulting Lab MICROBIOLOGY - GENERAL ORDERABLES [facility] [address] [place] [address] * COVID-19 TESTING (05/13/2022 15:10 EDT) COVID-19 rt-PCR Result Negative Negative 05/14/2022 20:09 EDT [facility] Comment: This test has not been FDA cleared or approved. This test has been authorized by FDA under an EUA for use by authorized laboratories. This test has been authorized only for detection of nucleic acid from 2019-nCoV, not for any other viruses or pathogens. This test is only authorized for the duration of the declaration that circumstances exist justifying the authorization of emergency use of in vitro diagnostic tests for detection and/or diagnosis of 2019-nCoV under section 564(b)(1) of Act, 21 U.S.C ?? 360bbb-3(b) (1), unless the authorization is terminated or revoked sooner. Negative results do not preclude 2019-nCoV infection and should not be used as the sole basis for treatment or other patient management decisions. Negative results must be combined with clinical observations, patient history, and epidemiological information. Performed on the [employer] Fusion instrument Performing Lab [place] [facility] 05/14/2022 20:09 EDT [facility] Swab 05/13/2022 15:1 0 EDT 05/14/2022 16:05 EDT Provider Outr Resulting Lab MICROBIOLOGY - GENERAL ORDERABLES Performing Organization Address City/State/[facility] Co de Phone Number [facility] [address] [place] [address] documented in this encounter Visit Diagnoses Not on filedocumented in this encounter Care Teams Theatrical Rigger Relationship Specialty Start Date End Date Unknown, Provider, PCP - General 12/23/16 Suzan Ji NP [address] [place] [phone] 12/23/16 documented as of this encounter
--- OUTSIDE RECORDS SUMMARY | 2024-07-26 16:45 | XMS_ITS | Encounter Summary ---
Author Organization [facility] Address [address] [place] [address] Care Team Providers Care Dye Range Operator Cloth Name Role Phone Nely Villatoro SERVICE SUPERINTENDENT Primary Care Provider [phone] Suzan Ji NP Primary Care Provider [phone] Encounter Details Date Type Department Care Team (Late st Contact Info) Description 05/27/2005 Results Only [facility] - Maple conversion [address] [place] [address] Tamanna Cornelius MD [address] [place] [address] Social History Tobacco Use Types Packs/Day Years Used Date Smoking Tobacco: Never Assessed Sex and Gender Information Value Date Recorded Sex Assigned at Not on file Gender Identity Not on file Sexual Orientation Not on file documented as of this encounter Plan of Treatment Not on file documented as of this encounter Procedures Procedure Name Priority Date/Time Associated Diagnosis Comments SURGICAL PATHOLOGY Routine 05/27/2005 0:00 EDT documented in this encounter Results * SURGICAL PATHOLOGY (05/27/2005 0:00 EDT) Pathology Report: SURGICAL PATHOLOGY REPORT Reports generated via electronic interface contain original data; however they are lacking the format of the original report. Caution should be taken when reading/interpreti ng unformatted reports. Name: ? MARTA PERRY ? Accession #: ? [id number] ? : ? 1985 (Age: 19) ??F ? Collect Date: ? 05/27/2005 ? Location: ? [facility] ? Receive Date: ? 05/28/2005 ? Provider: TAMANNA CORNELIUS MD Copy to: ? Final Pathologic Diagnosis: ? Endocervical, curettage: 1. ?Minute strips of benign endocervical and squamous mucosa. ??See comment. 2. ?No dysplasia identified. Comment: ? The amount of tissue obtained is very scant. (Dr. Oconnor)/[facility] Document reviewed and electronically signed by: NORA KERR MD Report ??Date: 05/30/2005 15:09 By the signature above, the attending physician certifies that he/she has personally conducted a gross and/or microscopic examination of the described specimens and rendered or confirmed the above diagnosis. Specimen(s) Received: ? ECC Clinical History: ? 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 Received in formalin labeled Perry and ECC are multiple minute fragments of malhotra soft tissue. ??These fragments are too small to measure in aggregate. ??The specimen is entirely submitted after filtration in one cassette. ??(Dr. Maza-[place])/[facility] End of Report [facility] 05/27/2005 05/28/2005 15: 31 EDT Tamanna Cornelius MD PATHOLOGY ORDERABLES [facility] [address] [place] [address] documented in this encounter Visit Diagnoses Not on filedocumented in this encounter Care Teams Dye Range Operator Cloth Relationship Specialty Start Date End Date Nely Villatoro APRN [address] [place] [address] PCP - General 02/06/09 08/10/09 Suzan Ji NP [address] [place] [address] PCP - General 08/11/09 12/22/16 documented as of this encounter
--- OUTSIDE RECORDS SUMMARY | 2024-07-26 16:45 | XMS_ITS | Encounter Summary ---
Author Organization [facility] Address [address] [place] [address] Care Team Providers Care Developer Prover Upholstering Name Role Phone Nely Villatoro APRN Primary Care Provider [phone] Encounter Details Date Type Department Care Team (Latest Contact Info) Description 08/09/2009 9:30 EDT - 08/09/2009 9:31 EDT Hospital Encounter [facility] - Other [address] [place] [address] Carlo Nelson MD [address] [place] [address] Discharge Disposition: Home or Self Care Social [...] on filedocumented in this encounter Care Teams Developer Prover Upholstering Relationship Specialty Start Date End Date Nely Villatoro APRN [address] [place] [address] PCP - General 02/06/09 08/10/09 documented as of this encounter
--- OUTSIDE RECORDS SUMMARY | 2024-07-26 16:45 | XMS_ITS | Continuity of Care Document ---
Author Organization [facility] Address [address] [place] [address] Phone Care Team Providers Care Front End Wheel Loader Operator Name Role Phone PCP, of Choice Primary Care Provider DO Donna Haas Attending Provider Chief Complaint and Reason for Visit Chief Complaint New Patient Follow Up TELEMED Follow Up Reason for Visit Chronic nasal conges tion Aileen bullosa Deviated nasal septum Nasal turbinate hypertrophy Chronic nasal congestion Aileen bullosa Deviated nasal septum Nasal turbinate hypertrophy Allergies, Adverse Reactions, Alerts Allergen Type Severity Reaction Last Updated Verified Status doxycycline Allergy malaise December 27, 2021 4:28pm Yes Active Social History Smoking Status Status Start Date End Date Date of Observa tion Never smoked tobacco (finding) April 24, 2022 9:18am Observation Status Observation Response Date of Response Smoking Status Never smoker April 24, 2022 9 :18am Additional Data Assigned Sex Female Problems Active Problems Medical Problem Onset Date Status Nasal turbinate hypertrophy Acti ve Aileen bullosa Active Chronic nasal congestion Active Deviated nasal septum Active Medications Medication Status Dose Units Route Directions Qty Days St art Date End Date Instructions Desloratadine Active 5 MG PO DAILY 30 Mar 2021 1:00am recommend OTC loratadine if not covered Mometasone Active 1 SPR NA TWICE A DAY 17 M [facility] 2021 1:00am administer into each nostril Vital Signs Vital Reading Result Reference Range Collection Date/Time Heart Rate 94 /min 60-100 December 27 4:38pm Respiratory rate 16 /min 12-24 December 27, 2021 4:38pm BP Systolic 118 mm[Hg] 100-140 December 27 4:38pm BP Diastolic 72 mm[Hg] 50-85 December 27 4:38pm Advance Directives Advance Directive Response Recorded Date/ Time Does patient have an Advanced Directive? No December 27, 2021 4:09pm Do we have a copy on file here at [facility]? No December 27, 2021 4:09pm Pt has a Living Will? No December 4:09pm Do we have a copy on file here at [facility]? No December 27, 2021 4:09pm Pt has a Power of Mandolin Repair Person? No Bunny 2021 4:09pm Do we have a copy on file here at [facility]? No December 27, 2021 4:09pm Insurance Providers Guarantor MARTA LAST Address [address] [place] [address] Contact Info. Home Phone: Payer Policy Id Coverage Id Subscriber's Name Subscriber Id Effective Date Expiration Date [facility] [id number] MARTA SHALA [id number] 000 SELF PAY Self N/A Encounters Encounter Location(s) Arrival/Admit Date Discharge/Depart Date Provider(s) Departed Physician/Prov ider Office Visit [facility] December 27, 2021 4:09pm December 27, 2021 5:16pm Donna Velazquez DO Departed Physician/Prov ider Office Visit [facility] January 31, 2022 3:52pm January 31, 2022 3:52pm Donna Velazquez DO Departed Physician/Prov ider Office Visit [facility] April 25, 2022 2:40pm April 25, 2022 2:40pm Donna Velazquez DO Recent Diagnosis Onset Date [...] Providers Referral information is unavailable Future Procedures Future procedure information is unavailable Future Medications Future medication information is unavailable Patient Instructions [facility] Preop Septo Turbinat es
--- OUTSIDE RECORDS SUMMARY | 2024-07-26 16:45 | XMS_ITS | Continuity of Care Document ---
Author Organization [facility] Address [address] [place] [address] Phone Support Name Relationship Address Phone BRANDIE LAST Spouse Unknown [phone] PCP, of Choice Primary Care Provider Unknown Unav ailable DO Donna Velazquez [place] [address] Katherine Segura Referring Provider [facility] [address] Chief Complaint and Reason for Visit Chief Complaint New Patient Follow Up TELEMED Reason for Visit Chronic nasal conges tion Aileen bullosa Deviated nasal septum Nasal turbinate hypertrophy Allergies, Adverse Reactions, Alerts Allergen Type Severity Reaction Last Updated Verified Status doxycycline Allergy malaise December 27, 2021 4:28pm Yes Active Social History Smoking Status Status Start Date End Date Date of Observa tion Never smoked tobacco (finding) January 30, 2022 4:52pm Observation Status Observation Response Date of Response Smoking Status Never smoker January 30, 2022 4:52pm Additional Data Assigned Sex Female Problems Active Problems Medical Problem Onset Date Status Nasal turbinate hypertrophy Acti ve Aileen bullosa Active Chronic nasal congestion Active Deviated nasal septum Active Medications Medication Status Dose Units Route Directions Qty Days St art Date End Date Instructions Desloratadine Active 5 MG PO DAILY 30 Mar 2021 5:03pm recommend OTC loratadine if not covered Mometasone Active 1 SPR NA TWICE A DAY 17 M 2021 5:03pm administer into each nostril Vital Signs Vital [...] on file here at [facility] No December 27, 2021 4:09pm Pt has a Living Will? No December 4:09pm Do we have a copy on file here at [facility]? No December 27, 2021 4:09pm Pt has a Power of Production Broaching Machine Operator? No Bunny 2021 4:09pm Do we have a copy on file here at [facility]? No December 27, 2021 4:09pm Insurance Providers Guarantor MARTA LAST Address [address] [place] [id number] Contact Info. Home Phone: Payer Policy Id Coverage Id Subscriber's Name Subscriber Id Effective Date Expiration Date [facility] [id number] MARTA LAST [id number] 000 SELF PAY Self N/A Encounters Encounter Location(s) Arrival/Admit Date Discharge/Depart Date Provider(s) Departed Physician/Prov ider Office Visit [facility] ENT December 27, 2021 4:09pm December 27, 2021 5:16pm Donna Velazquez DO Departed Physician/Prov ider Office Visit [facility] January 31, 2022 3:52pm January 31, 2022 3:52pm Donna Velazquez DO Recent Diagnosis Onset Date Chronic nasal congestion Aileen bullosa Deviated nasal septum Nasal turbinate hypertrophy Assessments Diagnosis Onset Date Resolution Status Chronic nasal congestion chr onic Aileen bullosa chronic Deviated nasal septum chroni c Nasal turbinate hypertrophy chronic
== END 2024-07-26 16:42 | disposition home or self-care (01) ==
LOC: NCHCN 16:41
PROVIDERS: PCP Family Medicine; Visit Provider Family Medicine
DX: Z12.4 Encounter for screening for malignant neoplasm of cervix (principal)
CPT/HCPCS: 88142; 87624